=== PATIENT | female | born 1985 | race Caucasian/White ===

== ENCOUNTER 2016-11-12 13:27 | Emergency (ER) | payer OTHER ==
[2016-11-12] MEDS ORDERED: RABIES IMMUNE GLOB 150 UNIT/ML 10 ML VIAL IM ONE (13:53)
[2016-11-12] MEDS ORDERED: RABIES VACCINE (PCEC) 2.5 UNIT KIT IM ONE (13:58)
--- NOTE | 2016-11-12 14:07 | XR ---
EXAMINATION TYPE: XR wrist complete RT DATE OF EXAM: 11/12/2016 COMPARISON: NONE HISTORY: Pain and swelling TECHNIQUE: Four views submitted. FINDINGS: The osseous structures are intact. The joint spaces are preserved and there is no acute fracture or dislocation. Soft tissue emphysema and edema of adjacent to the wrist IMPRESSION: 1. No definite acute fracture or dislocation if symptoms persist, follow-up study in 7 to 10 days wo uld be suggested. 2. Soft tissue injury may be related to reported history of dog bites with edema and soft tissue emph ysema. Correlate clinically.
--- NOTE | 2016-11-12 14:13 | ED ---
Animal Bite HPI - General Chief Complaint: Animal Bite Stated Complaint: Dog Bite Time Seen by Provider: 11/12/16 13:49 Source: patient, RN notes reviewed Mode of arrival: ambulatory Limitations: no limitations - History of Present Illness Initial Comments: 31-year-old female presents to the emergency department with a chief complaint of left hand and right wrist dog bite that happened at 7 AM this morning. Patient states she is obtaining her tetanus. Patient states straight rashes are noted at his underwent the dog came from and she has no accident. Patient states other injury from the incident. Patient concerns that she went to [facility] and she was referred here for rabies. Patient denies any other symptoms at this time. Patient denies any recent fever, chills, shortness of breath, chest pain, back pain, abdominal pain, nausea vomiting, numbness or tingling, dysuria or hematuria, constipation or diarrhea, headaches or visual changes, or any other current symptoms. - Related Data Home Medications Medication Instructions Recorded Confirmed Albuterol Inhaler [Ventolin Hfa 2 puff INHALATION RT-Q6H PRN 08/13/15 11/12/16 Inhaler] Fluticasone Nasal [place] [Flonase 2 spr EA NOSTRIL DAILY PRN 08/13/15 11/12/16 Nasal [place]] metFORMIN HCL [Glucophage] 500 mg PO BID 08/13/15 11/12/16 Omeprazole [PriLOSEC] 40 mg PO QAM 10/07/15 11/12/16 Ranitidine HCl [Zantac] 150 mg PO HS 10/07/15 11/12/16 Previous Rx's Medication Instructions Recorded Clindamycin [Cleocin] 450 mg PO Q8HR #90 capsule 11/12/16 Allergies Allergy/AdvReac Type Severity Reaction Status Date / Time Penicillins Allergy Severe Anaphylaxis Verified 11/12/16 13:49 adhesive tape Allergy Rash/Hives Verified 11/12/16 13:49 hydromorphone HCl AdvReac Intermediate Decreased Verified 11/12/16 13:49 [From Dilaudid] Blood Pressure Review of Systems ROS Statement: Those systems with pertinent positive or pertinent negative responses have been documented in the HPI. ROS Other: All systems not noted in ROS Statement are negative. Past Medical History Past Medical History: Asthma, Osteoarthritis (OA) Additional Past Medical History / Comment(s): Obesity. PCOS, IBS. Obstetric history is significant for 9 week spontaneous miscarriage. History of Any Multi-Drug Resistant Organisms: None Reported, MRSA Date of last positivie culture/infection: 2007 MDRO Source:: right breast Additional Past Surgical History / Comment(s): Laminectomy Past Psychological History: No Psychological Hx Reported Smoking Status: Current every day smoker Past Alcohol Use History: None Reported Past Drug Use History: Marijuana - Past Family History Mother Family Medical History: Cancer General Exam - General Exam Comments Initial Comments: General: The patient is awake and alert, in no distress, and does not appear acutely ill. Neck: The neck is supple, there is no tenderness. Cardiovascular: There is a regular rate and rhythm. No murmur, rub or gallop is appreciated. Respiratory: Lungs are clear to auscultation, respirations are non-labored, breath sounds are equal. No wheezes, stridor, rales, or rhonchi. Musculoskeletal: Sensation intact with 2+ pulses throughout bilateral upper extremities. Patient does appear to have 2 bite olson to the right wrist that are about 1 cm in length. Patient appears to have multiple superficial bite olson diffusely to all fingers of the left hand Neurological: CN II-XII intact, There are no obvious motor or sensory deficits. Coordination appears grossly intact. Speech is normal. Skin: Skin is warm and dry and no rashes or lesions are noted. Psychiatric: Normal mood and affect. Limitations: no limitations Course Vital Signs 11/12/16 13:47 Temperature 98 F Pulse Rate 107 H Respiratory 20 Rate Blood Pressure 121/72 O2 Sat by Pulse 97 Oximetry Medical Decision Making - Medical Decision Making 31-year-old female presents for dog bite. This time we did do the rabies Onions and said the rabies vaccination series. The wound was thoroughly cleaned and prepped. We did start patient antibiotics. We discussed return parameters and follow-up and all patient's questions. She stated she understood and she is given plan. She'll be discharged home. - Radiology Data Radiology results: report reviewed, image reviewed Disposition Clinical Impression: Dog bite of right wrist, Dog bite of left hand Disposition: HOME SELF-CARE Condition: Stable Instructions: Animal Bite (ED) Additional Instructions: Please use medication as discussed. Please follow up with family doctor if symptoms have not improved over the next two days. Please return to the emergency room if your symptoms increase or worsen or for any other concerns. Please follow up on the outpatient rabies vaccination series. Prescriptions: Clindamycin [Cleocin] 450 mg PO Q8HR #90 capsule Referrals: Alda Mendez MD [Primary Care Provider] - 1-2 days Time of Disposition: 14:39
--- NOTE | 2016-11-12 14:35 | XR ---
EXAMINATION TYPE: XR hand complete LT DATE OF EXAM: 11/12/2016 COMPARISON: NONE HISTORY: Pain post dog bite TECHNIQUE: Three views are submitted. FINDINGS: The osseous structures are intact. The joint spaces are preserved and there is no acute fracture or dislocation. IMPRESSION: 1. No definite acute fracture or dislocation if symptoms persist, follow-up study in 7 to 10 days wo uld be suggested
--- NOTE | 2016-11-12 14:36 | XR ---
EXAMINATION TYPE: XR hand complete RT DATE OF EXAM: 11/12/2016 COMPARISON: NONE HISTORY: Pain post dog bite TECHNIQUE: Three views are submitted. FINDINGS: The osseous structures are intact. The joint spaces are preserved and there is no acute fracture or dislocation. Soft tissue injury and emphysema with edema overlying the distal radius. IMPRESSION: 1. No definite acute fracture or dislocation if symptoms persist, follow-up study in 7 to 10 days wo uld be suggested. 2. Soft tissue edema and emphysema adjacent to the radius.
[2016-11-12 15:07] VITALS: BP 122/82; PULSE 92; RESP 18; TEMP 98.1
== END 2016-11-12 15:06 | disposition home or self-care (01) ==
LOC: EC 13:27
DX: S61.551A Open bite of right wrist, initial encounter (principal); S60.372A Other superficial bite of left thumb, initial encounter; S60.471A Other superficial bite of left index finger, initial encounter; S60.473A Other superficial bite of left middle finger, initial encounter; S60.475A Other superficial bite of left ring finger, initial encounter; S60.477A Other superficial bite of left little finger, initial encounter; F17.200 Nicotine dependence, unspecified, uncomplicated; Z23 Encounter for immunization; Z88.0 Allergy status to penicillin; Z88.5 Allergy status to narcotic agent; Z91.048 Other nonmedicinal substance allergy status; Z79.84 Long term (current) use of oral hypoglycemic drugs; Z79.899 Other long term (current) drug therapy; W54.0XXA Bitten by dog, initial encounter
CPT/HCPCS: 90375; 90471; 90675; 96372; 99283

== ENCOUNTER 2017-03-16 10:00 | Emergency (ER) | payer OTHER ==
[2017-03-16] MEDS ORDERED: SODIUM CHLORIDE 0.9% 1,000 ML IV STA (10:51)
[2017-03-16] MEDS ORDERED: RX INFO: IV CONTRAST WAS GIVEN 1 EACH MISC MISCELLANE PRN (10:51)
[2017-03-16] MEDS ORDERED: ONDANSETRON 4 MG/2 ML VIAL IVP STA (10:51)
[2017-03-16] MEDS ORDERED: MORPHINE SULFATE 5 MG/ML SYRINGE IV STA (10:53)
[2017-03-16 11:35] LABS: Basophils % (A) 1 %; Eosinophils # (A) 0.2 k/uL (0-0.7); Eosinophils % (A) 3 %; HGB 13.4 gm/dL (11.4-16.0); Lymphocytes # (A) 2.3 k/uL (1.0-4.8); Lymphocytes % (A) 32 %; MCH 30.2 pg (25.0-35.0); MCHC 33.5 g/dL (31.0-37.0); MCV 90.2 fL (80.0-100.0); Mean Platelet Volume 7.9; Monocytes # (A) 0.2 k/uL (0-1.0); Monocytes % (A) 3 %; Neutrophils # (A) 4.3 k/uL (1.3-7.7); Neutrophils % (A) 60 %; Platelet Count 203 k/uL (150-450); RBC 4.43 m/uL (3.80-5.40); RDW 15.1 % (11.5-15.5); WBC 7.1 k/uL (3.8-10.6)
[2017-03-16 11:44] LABS: ALT 94 U/L (9-52); AST 73 U/L (14-36); Albumin 4.1 g/dL (3.5-5.0); Alkaline Phosphatase 58 U/L (38-126); Amylase 37 U/L (30-110); Anion Gap 13 mmol/L; Blood Urea Nitrogen 13 mg/dL (7-17); Calcium 9.6 mg/dL (8.4-10.2); Carbon Dioxide 26 mmol/L (22-30); Chloride 106 mmol/L (98-107); Glucose 96 mg/dL (74-99); Lipase 86 U/L (23-300); Potassium 3.9 mmol/L (3.5-5.1); Sodium 145 mmol/L (137-145); Total Bilirubin 0.5 mg/dL (0.2-1.3); Total Protein 6.9 g/dL (6.3-8.2)
[2017-03-16 11:54] LABS: Creatine Kinase 92 U/L (30-135)
[2017-03-16 12:01] LABS: Appearance,Urine Cloudy (Clear); Bacteria,Urine Occasional /hpf; Bilirubin,Urine Negative (Negative); Blood,Urine Trace (Negative); Color,Urine Yellow; Glucose,Urine (UA) Negative (Negative); Ketones,Urine Negative (Negative); Leukocyte Esterase,Urine Small (Negative); Mucus,Urine Rare /hpf; Nitrite,Urine Negative (Negative); Protein,Urine Trace (Negative); RBC,Urine 4 /hpf (0-5); Specific Gravity,Urine 1.023 (1.001-1.035); Squamous Epithelial Cell,Urine 16 /hpf (0-4); Urobilinogen,Urine <2.0 mg/dL (<2.0); WBC,Urine 7 /hpf (0-5)
[2017-03-16 12:04] LABS: Creatine Kinase MB <0.2 ng/mL (0.0-2.4)
--- NOTE | 2017-03-16 12:37 | ED ---
General Adult HPI - General Chief complaint: Abdominal Pain Stated complaint: BRUISE ON ABDOMEN FROM FALL, VOMITING, SHAKING Time Seen by Provider: 03/16/17 10:23 Source: patient, RN notes reviewed, old records reviewed Mode of arrival: wheelchair Limitations: no limitations - History of Present Illness Initial comments: This is a 31-year-old female to the ER for evaluation today. This patient's presenting for evaluation regards to abdominal pain. Patient has no prior significant medical history takes no medications. Patient states she had a recent fall causing injury to the left side of her body. She has severe bruising in severe pain. Diffuse abdominal pain with nausea sometimes shortness of breath with a deep breath and pain in her left side of her rib cage. Patient denies bleeding denies nausea or vomiting. Denies blood in her stool or urine no modifying factors for pain - Related Data Home Medications Medication Instructions Recorded Confirmed Fluticasone Nasal [place] [Flonase 2 spr EA NOSTRIL DAILY PRN 08/13/15 03/16/17 Nasal [place]] metFORMIN HCL [Glucophage] 850 mg PO BID 08/13/15 03/16/17 Omeprazole [PriLOSEC] 40 mg PO BID 10/07/15 03/16/17 Ranitidine HCl [Zantac] 150 mg PO BID 10/07/15 03/16/17 Allergies Allergy/AdvReac Type Severity Reaction Status Date / Time Penicillins Allergy Severe Anaphylaxis Verified 03/16/17 10:18 adhesive tape Allergy Rash/Hives Verified 03/16/17 10:18 clindamycin Allergy Nausea Verified 03/16/17 10:18 hydromorphone HCl AdvReac Intermediate Decreased Verified 03/16/17 10:18 [From Dilaudid] Blood Pressure Review of Systems ROS Statement: Those systems with pertinent positive or pertinent negative responses have been documented in the HPI. ROS Other: All systems not noted in ROS Statement are negative. Past Medical History Past Medical History: Asthma, Osteoarthritis (OA) Additional Past Medical History / Comment(s): Obesity. PCOS, IBS, chronic back pain. Obstetric history is significant for 9 week spontaneous miscarriage. History of Any Multi-Drug Resistant Organisms: None Reported, MRSA Date of last positivie culture/infection: 2007 MDRO Source:: right breast Additional Past Surgical History / Comment(s): Laminectomy Past Psychological History: No Psychological Hx Reported Smoking Status: Current every day smoker Past Alcohol Use History: None Reported Past Drug Use History: Marijuana - Past Family History Mother Family Medical History: Cancer General Exam Limitations: no limitations General appearance: alert, in no apparent distress Head exam: Present: atraumatic, normocephalic, normal inspection Eye exam: Present: normal appearance, PERRL, EOMI. Absent: scleral icterus, conjunctival injection, periorbital swelling ENT exam: Present: normal exam, mucous membranes moist Neck exam: Present: normal inspection. Absent: tenderness, meningismus, lymphadenopathy Respiratory exam: Present: normal lung sounds bilaterally. Absent: respiratory distress, wheezes, rales, rhonchi, stridor Cardiovascular Exam: Present: regular rate, normal rhythm, normal heart sounds. Absent: systolic murmur, diastolic murmur, rubs, gallop, clicks GI/Abdominal exam: Present: soft, tenderness (Patient does have bruising anterior left flank which is tender to touch), normal bowel sounds. Absent: distended, guarding, rebound, rigid Extremities exam: Present: normal inspection, full ROM, normal capillary refill. Absent: tenderness, pedal edema, joint swelling, calf tenderness Back exam: Present: normal inspection Neurological exam: Present: alert, oriented X3, CN II-XII intact Psychiatric exam: Present: normal affect, normal mood Skin exam: Present: warm, dry, intact, normal color. Absent: rash Course Vital Signs 03/16/17 10:07 Temperature 97.8 F Pulse Rate 90 Respiratory 20 Rate Blood Pressure 141/80 O2 Sat by Pulse 99 Oximetry - Reevaluation(s) Reevaluation #1: 03/16/17 13:38 Patient has adequate pain control at this time Medical Decision Making - Medical Decision Making 31 female the ER for evaluation of bowel pain severe with her bowel pain secondary to trauma with bruising. Patient does have abdominal wall contusion, CT is negative for chest pain or abdominal or organomegaly injury. Patient can be discharged home - Lab Data Result diagrams: 03/16/17 11:10 03/16/17 11:10 Lab Results 03/16/17 03/16/17 03/16/17 Range/Units 11:10 11:10 11:10 WBC 7.1 (3.8-10.6) k/uL RBC 4.43 (3.80-5.40) m/uL Hgb 13.4 (11.4-16.0) gm/dL Hct 40.0 (34.0-46.0) % MCV 90.2 (80.0-100.0) fL MCH 30.2 (25.0-35.0) pg MCHC 33.5 (31.0-37.0) g/dL RDW 15.1 (11.5-15.5) % Plt Count 203 (150-450) k/uL Neutrophils % 60 % Lymphocytes % 32 % Monocytes % 3 % Eosinophils % 3 % Basophils % 1 % Neutrophils # 4.3 (1.3-7.7) k/uL Lymphocytes # 2.3 (1.0-4.8) k/uL Monocytes # 0.2 (0-1.0) k/uL Eosinophils # 0.2 (0-0.7) k/uL Basophils # 0.0 (0-0.2) k/uL Sodium 145 (137-145) mmol/L Potassium 3.9 (3.5-5.1) mmol/L Chloride 106 (98-107) mmol/L Carbon Dioxide 26 (22-30) mmol/L Anion Gap 13 mmol/L BUN 13 (7-17) mg/dL Creatinine 0.74 (0.52-1.04) mg/dL Est GFR (MDRD) Af Amer >60 (>60 ml/min/1.73 sqM) Est GFR (MDRD) Non-Af >60 (>60 ml/min/1.73 sqM) Glucose 96 (74-99) mg/dL Calcium 9.6 (8.4-10.2) mg/dL Total Bilirubin 0.5 (0.2-1.3) mg/dL AST 73 H (14-36) U/L ALT 94 H (9-52) U/L Alkaline Phosphatase 58 (38-126) U/L Total Creatine Kinase 92 (30-135) U/L CK-MB (CK-2) <0.2 (0.0-2.4) ng/mL CK-MB (CK-2) Rel Index Total Protein 6.9 (6.3-8.2) g/dL Albumin 4.1 (3.5-5.0) g/dL Amylase 37 (30-110) U/L Lipase 86 (23-300) U/L Urine Color Urine Appearance (Clear) Urine pH (5.0-8.0) Ur Specific [place] (1.001-1.035) Urine Protein (Negative) Urine Glucose (UA) (Negative) Urine Ketones (Negative) Urine Blood (Negative) Urine Nitrite (Negative) Urine Bilirubin (Negative) Urine Urobilinogen (<2.0) mg/dL Ur Leukocyte Esterase (Negative) Urine RBC (0-5) /hpf Urine WBC (0-5) /hpf Ur Squamous Epith Cells (0-4) /hpf Urine Bacteria (None) /hpf Urine Mucus (None) /hpf Urine HCG, Qual (Not Detectd) 03/16/17 03/16/17 Range/Units 11:10 11:10 WBC (3.8-10.6) k/uL RBC (3.80-5.40) m/uL Hgb (11.4-16.0) gm/dL Hct (34.0-46.0) % MCV (80.0-100.0) fL MCH (25.0-35.0) pg MCHC (31.0-37.0) g/dL RDW (11.5-15.5) % Plt Count (150-450) k/uL Neutrophils % % Lymphocytes % % Monocytes % % Eosinophils % % Basophils % % Neutrophils # (1.3-7.7) k/uL Lymphocytes # (1.0-4.8) k/uL Monocytes # (0-1.0) k/uL Eosinophils # (0-0.7) k/uL Basophils # (0-0.2) k/uL Sodium (137-145) mmol/L Potassium (3.5-5.1) mmol/L Chloride (98-107) mmol/L Carbon Dioxide (22-30) mmol/L Anion Gap mmol/L BUN (7-17) mg/dL Creatinine (0.52-1.04) mg/dL Est GFR (MDRD) Af Amer (>60 ml/min/1.73 sqM) Est GFR (MDRD) Non-Af (>60 ml/min/1.73 sqM) Glucose (74-99) mg/dL Calcium (8.4-10.2) mg/dL Total Bilirubin (0.2-1.3) mg/dL AST (14-36) U/L ALT (9-52) U/L Alkaline Phosphatase (38-126) U/L Total Creatine Kinase (30-135) U/L CK-MB (CK-2) (0.0-2.4) ng/mL CK-MB (CK-2) Rel Index Total Protein (6.3-8.2) g/dL Albumin (3.5-5.0) g/dL Amylase (30-110) U/L Lipase (23-300) U/L Urine Color Yellow Urine Appearance Cloudy H (Clear) Urine pH 6.0 (5.0-8.0) Ur Specific [place] 1.023 (1.001-1.035) Urine Protein Trace H (Negative) Urine Glucose (UA) Negative (Negative) Urine Ketones Negative (Negative) Urine Blood Trace H (Negative) Urine Nitrite Negative (Negative) Urine Bilirubin Negative (Negative) Urine Urobilinogen <2.0 (<2.0) mg/dL Ur Leukocyte Esterase Small H (Negative) Urine RBC 4 (0-5) /hpf Urine WBC 7 H (0-5) /hpf Ur Squamous Epith Cells 16 H (0-4) /hpf Urine Bacteria Occasional H (None) /hpf Urine Mucus Rare H (None) /hpf Urine HCG, Qual Not Detected (Not Detectd) - Radiology Data Radiology results: report reviewed (CT chest and pelvis negative for acute disease), image reviewed Disposition Clinical Impression: Abdominal pain, Abdominal contusion Disposition: HOME SELF-CARE Condition: Good Instructions: Abdominal Pain (ED) Referrals: Alda Mendez MD [Primary Care Provider] - 1-2 days
--- NOTE | 2017-03-16 13:31 | CT ---
EXAMINATION TYPE: CT ChestAbdPelvis w con DATE OF EXAM: 03/16/2017 COMPARISON: CT abdomen pelvis 08/16/2015 HISTORY: Fall a couple days ago, Lt sided bruising CT DLP: 2726 mGycm Automated exposure control for dose reduction was used. CONTRAST: CT scan of the chest, abdomen and pelvis is performed without Oral Contrast and with IV Contrast, pat ient injected with 100 mL of Omnipaque 300. FINDINGS: LUNGS: The lungs are grossly clear, there is no concerning parenchymal mass or nodule identified. T here is no pleural effusion or pneumothorax seen. The tracheobronchial tree is patent. MEDIASTINUM: There are no greater than 1 cm hilar or mediastinal lymph nodes. No pericardial effusi on is seen. AORTA: No significant abnormality is seen. OTHER: No additional significant abnormality is seen. LIVER/GB: Liver shows low attenuation likely due to hepatic steatosis, gallbladder is normal. PANCREAS: No significant abnormality is seen. SPLEEN: Spleen is enlarged.. ADRENALS: No significant abnormality is seen. KIDNEYS: No significant abnormality is seen. REPRODUCTIVE ORGANS: No gross abnormality seen. BOWEL: There are some small bowel loops with wall thickening. FREE AIR: No Free Air visible. ASCITES: None seen. RETROPERITONEAL ADENOPATHY: No retroperitoneal adenopathy is seen. LYMPH NODES: No greater than 1 cm abdominal or pelvic lymph nodes are appreciated. URINARY BLADDER: No significant abnormality is seen. PELVIC ADENOPATHY: None visualized. OSSEOUS STRUCTURES: No significant abnormality is seen. IMPRESSION: No acute osseous fracture, abnormal fluid collection, or evidence of solid organ injury i n the thorax, abdomen, or pelvis. Splenomegaly. Difficult to exclude enteritis. Additional findings a binu.
[2017-03-16 14:09] VITALS: BP 111/72; PULSE 71; RESP 18; TEMP 97.9
== END 2017-03-16 14:06 | disposition home or self-care (01) ==
LOC: EC 10:00
DX: S30.1XXA Contusion of abdominal wall, initial encounter (principal); R06.02 Shortness of breath; R07.81 Pleurodynia; E66.9 Obesity, unspecified; F17.200 Nicotine dependence, unspecified, uncomplicated; Z79.84 Long term (current) use of oral hypoglycemic drugs; Z79.899 Other long term (current) drug therapy; Z88.0 Allergy status to penicillin; Z88.1 Allergy status to other antibiotic agents; Z88.5 Allergy status to narcotic agent; Z91.09 Other allergy status, other than to drugs and biological substances; Z86.14 Personal history of Methicillin resistant Staphylococcus aureus infection; Z68.41 Body mass index [BMI] 40.0-44.9, adult; W19.XXXA Unspecified fall, initial encounter; Y92.009 Unspecified place in unspecified non-institutional (private) residence as the place of occurrence of the external cause
CPT/HCPCS: 36415; 80053; 82150; 82550; 82553; 83690; 85025; 81001; 81025; 87086; 71260; 74177; 99285; 96374; 96375; 96361; J2405; Q9967; J2274

== ENCOUNTER 2017-05-29 16:41 | Emergency (ER) | payer OTHER ==
[2017-05-29 16:45] VITALS: TEMP 98.7
[2017-05-29] MEDS ORDERED: KETOROLAC 60 MG/2 ML VIAL IM STA (17:09)
--- NOTE | 2017-05-29 17:13 | ED ---
URI HPI - General Chief Complaint: Upper Respiratory Infection Stated Complaint: abd pain Time Seen by Provider: 05/29/17 17:00 Source: patient, RN notes reviewed Mode of arrival: ambulatory Limitations: no limitations - History of Present Illness Initial Comments: 31-year-old female presents emergency Department chief complaint of cough congestion for last 10 days. Patient states she seen at [facility] told that she had acute bronchitis was given an inhaler, low-dose steroids, Flonase. Patient states that she still been coughing and states that she's coughing so hard that her ribs hurt. She denies any abdominal pain denies any nausea vomiting diarrhea constipation. No fevers or chills. Patient is a daily smoker. Patient denies any sick contacts. She has not tried any over-the- counter cough and cold medications. - Related Data Home Medications Medication Instructions Recorded Confirmed Fluticasone Nasal [place] [Flonase 2 spr EA NOSTRIL DAILY PRN 08/13/15 03/16/17 Nasal [place]] metFORMIN HCL [Glucophage] 850 mg PO BID 08/13/15 03/16/17 Omeprazole [PriLOSEC] 40 mg PO BID 10/07/15 03/16/17 Ranitidine HCl [Zantac] 150 mg PO BID 10/07/15 03/16/17 Previous Rx's Medication Instructions Recorded Azithromycin [Zithromax Z-pack] 0 mg PO DIRECTED #1 pack 05/29/17 Promethaz-Cod 6.25-10 mg/5 ml 5 ml PO Q6HR PRN #120 ml 05/29/17 [Phenergan with Codeine] predniSONE 50 mg PO DAILY #5 tab 05/29/17 Allergies Allergy/AdvReac Type Severity Reaction Status Date / Time Penicillins Allergy Severe Anaphylaxis Verified 05/29/17 16:45 adhesive tape Allergy Rash/Hives Verified 05/29/17 16:45 clindamycin Allergy Nausea Verified 05/29/17 16:45 hydromorphone HCl AdvReac Intermediate Decreased Verified 05/29/17 16:45 [From Dilaudid] Blood Pressure Review of Systems ROS Statement: Those systems with pertinent positive or pertinent negative responses have been documented in the HPI. ROS Other: All systems not noted in ROS Statement are negative. Past Medical History Past Medical History: Asthma, Osteoarthritis (OA) Additional Past Medical History / Comment(s): Obesity. PCOS, IBS, chronic back pain. Obstetric history is significant for 9 week spontaneous miscarriage. History of Any Multi-Drug Resistant Organisms: None Reported, MRSA Date of last positivie culture/infection: 2007 MDRO Source:: right breast Additional Past Surgical History / Comment(s): Laminectomy Past Psychological History: No Psychological Hx Reported Smoking Status: Current every day smoker Past Alcohol Use History: None Reported Past Drug Use History: Marijuana - Past Family History Mother Family Medical History: Cancer General Exam Limitations: no limitations General appearance: alert, in no apparent distress Head exam: Present: atraumatic, normocephalic, normal inspection Eye exam: Present: normal appearance, PERRL, EOMI. Absent: scleral icterus, conjunctival injection, periorbital swelling ENT exam: Present: normal exam, normal oropharynx, mucous membranes moist, TM's normal bilaterally Neck exam: Present: normal inspection, full ROM. Absent: tenderness, meningismus, lymphadenopathy Respiratory exam: Present: normal lung sounds bilaterally, chest wall tenderness (Anterior lateral left side). Absent: respiratory distress, wheezes , rales, rhonchi, stridor Cardiovascular Exam: Present: regular rate, normal rhythm, normal heart sounds. Absent: systolic murmur, diastolic murmur, rubs, gallop, clicks GI/Abdominal exam: Present: soft, normal bowel sounds. Absent: distended, tenderness, guarding, rebound, rigid Back exam: Absent: CVA tenderness (R), CVA tenderness (L) Psychiatric exam: Present: normal affect, normal mood Skin exam: Present: warm, dry, intact, normal color. Absent: rash Course Vital Signs 05/29/17 16:41 Temperature 98.7 F Pulse Rate 97 Respiratory 22 Rate Blood Pressure 108/58 O2 Sat by Pulse 100 Oximetry Medical Decision Making - Medical Decision Making 31-year-old female presents from for left-sided rib pain. Patient pain is over the anterolateral portion reproducible she has no current shortness of breath. She has no abdominal tenderness. Patient x-ray reviewed there is no evidence of infiltrate or pneumothorax. Patient's symptoms are only present when she coughs or costovertebral ribs. Patient was started on Zithromax she's been sick for 10 days and cough syrup. She is advised that she needs a follow-up tomorrow morning for recheck and return for any worsening symptoms. Disposition Clinical Impression: Rib pain on left side, Acute bronchitis Disposition: HOME SELF-CARE Condition: Stable Instructions: Costochondritis (ED) Additional Instructions: Please return to the Emergency Department if symptoms worsen or any other concerns. Prescriptions: Azithromycin [Zithromax Z-pack] 0 mg PO DIRECTED #1 pack predniSONE 50 mg PO DAILY #5 tab Promethaz-Cod 6.25-10 mg/5 ml [Phenergan with Codeine] 5 ml PO Q6HR PRN #120 ml PRN Reason: Cough Referrals: Alda Mendez MD [Primary Care Provider] - 1-2 days Time of Disposition: 17:58
--- NOTE | 2017-05-29 17:52 | XR ---
EXAMINATION TYPE: XR chest 2V DATE OF EXAM: 05/29/2017 COMPARISON: 08/27/2014 INDICATION: Cough, pain TECHNIQUE: Frontal and lateral views of the chest are obtained. FINDINGS: The heart size is normal. The pulmonary vasculature is normal. The lungs are clear. IMPRESSION: 1. No acute pulmonary process.
[2017-05-29 18:08] VITALS: BP 143/58; PULSE 82; RESP 20
== END 2017-05-29 18:08 | disposition home or self-care (01) ==
LOC: EC 16:41
DX: J20.9 Acute bronchitis, unspecified (principal); R07.81 Pleurodynia; F17.200 Nicotine dependence, unspecified, uncomplicated; E66.9 Obesity, unspecified; Z86.14 Personal history of Methicillin resistant Staphylococcus aureus infection; Z68.41 Body mass index [BMI] 40.0-44.9, adult; Z88.0 Allergy status to penicillin; Z88.1 Allergy status to other antibiotic agents; Z88.5 Allergy status to narcotic agent; Z91.048 Other nonmedicinal substance allergy status; Z79.84 Long term (current) use of oral hypoglycemic drugs; Z79.899 Other long term (current) drug therapy
CPT/HCPCS: 99283; 96372; 71046; J1885

== ENCOUNTER 2017-12-02 11:52 | Observation (INO) | payer OTHER ==
--- NOTE | 2017-12-02 12:10 | ED ---
General Adult HPI - General Stated complaint: Left side numbness Time Seen by Provider: 12/02/17 11:55 Source: RN notes reviewed - History of Present Illness Initial comments: This is a 32-year-old female presents emergency Department stating she had some tingling and numbness in her left arm couple hours prior to arrival and also had some right-sided facial droop. Patient states her friend noticed a facial droop and so did she while looking in the mirror. Patient denies any headache patient denies any actual weakness in her arms or legs. Patient denies any recent fever chills. Patient denies any chest pain difficulty breathing shortness of breath. Patient denies abdominal pain patient denies nausea vomiting diarrhea. Patient denies any recent injury or trauma. - Related Data Home Medications Medication Instructions Recorded Confirmed Fluticasone Nasal [place] [Flonase 2 spr EA NOSTRIL DAILY PRN 08/13/15 12/02/17 Nasal [place]] metFORMIN HCL [Glucophage] 850 mg PO BID 08/13/15 12/02/17 Omeprazole [PriLOSEC] 40 mg PO BID 10/07/15 12/02/17 Ranitidine HCl [Zantac] 150 mg PO BID 10/07/15 12/02/17 Albuterol Inhaler [Ventolin Hfa 2 puff INHALATION RT-Q6H PRN 12/02/17 12/02/17 Inhaler] Loratadine [Claritin] 10 mg PO DAILY 12/02/17 12/02/17 Allergies Allergy/AdvReac Type Severity Reaction Status Date / Time Penicillins Allergy Severe Anaphylaxis Verified 12/02/17 12:30 adhesive tape Allergy Rash/Hives Verified 12/02/17 12:30 clindamycin Allergy Nausea Verified 12/02/17 12:30 hydromorphone HCl AdvReac Intermediate Decreased Verified 12/02/17 12:30 [From Dilaudid] Blood Pressure Review of Systems ROS Statement: Those systems with pertinent positive or pertinent negative responses have been documented in the HPI. ROS Other: All systems not noted in ROS Statement are negative. Past Medical History Past Medical History: Asthma, Osteoarthritis (OA) Additional Past Medical History / Comment(s): Obesity. PCOS, IBS, chronic back pain. Obstetric history is significant for 9 week spontaneous miscarriage. History of Any Multi-Drug Resistant Organisms: None Reported, MRSA Date of last positivie culture/infection: 2007 MDRO Source:: right breast Additional Past Surgical History / Comment(s): Laminectomy Past Psychological History: No Psychological Hx Reported Smoking Status: Current every day smoker Past Alcohol Use History: None Reported Past Drug Use History: Marijuana - Past Family History Mother Family Medical History: Cancer General Exam - General Exam Comments Initial Comments: GENERAL: Patient is well-developed and well-nourished. Patient is nontoxic and well- hydrated and is in no acute distress. ENT: Neck is soft and supple. No significant lymphadenopathy is noted. Oropharynx is clear. Moist mucous membranes. Neck has full range of motion without eliciting any pain. EYES: The sclera were anicteric and conjunctiva were pink and moist. Extraocular movements were intact and pupils were equal round and reactive to light. Eyelids were unremarkable. PULMONARY: Unlabored respirations. Good breath sounds bilaterally. No audible rales rhonchi or wheezing was noted. CARDIOVASCULAR: There is a regular rate and rhythm without any murmurs gallops or rubs. ABDOMEN: Soft and nontender with normal bowel sounds. No palpable organomegaly was noted. There is no palpable pulsatile mass. SKIN: Skin is clear with no lesions or rashes and otherwise unremarkable. NEUROLOGIC: Patient is alert and oriented x3. Cranial nerves II through XII are grossly intact. Motor and sensory are also intact. Normal speech, volume and content. Symmetrical smile. Patient's smile and facial movements were all equal unless you asked her specifically to smile and then she would only raise the left side of her face however through all conversations and her laughing and talking there was no deficit noted. MUSCULOSKELETAL: Normal extremities with adequate strength and full range of motion. LYMPHATICS: No significant lymphadenopathy is noted PSYCHIATRIC: Normal psychiatric evaluation. Normal interpersonal interactions appears functionally intact in deals appropriately with others. No signs of depression. No signs of anxiety. Course Vital Signs 12/02/17 12/02/17 12:04 13:05 Temperature 98.9 F Pulse Rate 87 76 Respiratory 18 18 Rate Blood Pressure 119/65 101/55 O2 Sat by Pulse 99 96 Oximetry Medical Decision Making - Medical Decision Making EKG shows sinus rhythm at 62 bpm AL interval 158 QRSs 80 QT interval 434 QTC is 440. Patient's EKG shows no ST segment elevation or depression or T wave abnormalities are noted. CT of the brain shows no acute abnormality. I spoke with Dr. Dickerson he agreed to admit the patient admitted the patient I carotid Dopplers as well as a neuro consult. Patient has no symptoms at this time. - Lab Data Result diagrams: 12/02/17 12:12/02/17 12: Lab Results 12/02/17 12/02/17 12/02/17 Range/Units 12: 12: 12:01 WBC 8.1 (3.8-10.6) k/uL RBC 4.47 (3.80-5.40) m/uL Hgb 13.1 (11.4-16.0) gm/dL Hct 39.9 (34.0-46.0) % MCV 89.1 (80.0-100.0) fL MCH 29.2 (25.0-35.0) pg MCHC 32.8 (31.0-37.0) g/dL RDW 13.0 (11.5-15.5) % Plt Count 247 (150-450) k/uL Neutrophils % 63 % Lymphocytes % 30 % Monocytes % 2 % Eosinophils % 4 % Basophils % 0 % Neutrophils # 5.0 (1.3-7.7) k/uL Lymphocytes # 2.4 (1.0-4.8) k/uL Monocytes # 0.2 (0-1.0) k/uL Eosinophils # 0.3 (0-0.7) k/uL Basophils # 0.0 (0-0.2) k/uL PT (9.0-12.0) sec INR (<1.2) APTT (22.0-30.0) sec Sodium 142 (137-145) mmol/L Potassium 4.0 (3.5-5.1) mmol/L Chloride 110 H (98-107) mmol/L Carbon Dioxide 23 (22-30) mmol/L Anion Gap 9 mmol/L BUN 14 (7-17) mg/dL Creatinine 0.62 (0.52-1.04) mg/dL Est GFR (CKD-EPI)AfAm >90 (>60 ml/min/1.73 sqM) Est GFR (CKD-EPI)NonAf >90 (>60 ml/min/1.73 sqM) Glucose 92 (74-99) mg/dL Calcium 8.5 (8.4-10.2) mg/dL Total Bilirubin 0.5 (0.2-1.3) mg/dL AST 24 (14-36) U/L ALT 36 (9-52) U/L Alkaline Phosphatase 52 (38-126) U/L Total Creatine Kinase 78 (30-135) U/L CK-MB (CK-2) 0.3 (0.0-2.4) ng/mL CK-MB (CK-2) Rel Index 0.4 Troponin I <0.012 (0.000-0.034) ng/mL Total Protein 6.3 (6.3-8.2) g/dL Albumin 3.5 (3.5-5.0) g/dL 12/02/17 Range/Units 12:01 WBC (3.8-10.6) k/uL RBC (3.80-5.40) m/uL Hgb (11.4-16.0) gm/dL Hct (34.0-46.0) % MCV (80.0-100.0) fL MCH (25.0-35.0) pg MCHC (31.0-37.0) g/dL RDW (11.5-15.5) % Plt Count (150-450) k/uL Neutrophils % % Lymphocytes % % Monocytes % % Eosinophils % % Basophils % % Neutrophils # (1.3-7.7) k/uL Lymphocytes # (1.0-4.8) k/uL Monocytes # (0-1.0) k/uL Eosinophils # (0-0.7) k/uL Basophils # (0-0.2) k/uL PT 9.9 (9.0-12.0) sec INR 1.0 (<1.2) APTT 23.8 (22.0-30.0) sec Sodium (137-145) mmol/L Potassium (3.5-5.1) mmol/L Chloride (98-107) mmol/L Carbon Dioxide (22-30) mmol/L Anion Gap mmol/L BUN (7-17) mg/dL Creatinine (0.52-1.04) mg/dL Est GFR (CKD-EPI)AfAm (>60 ml/min/1.73 sqM) Est GFR (CKD-EPI)NonAf (>60 ml/min/1.73 sqM) Glucose (74-99) mg/dL Calcium (8.4-10.2) mg/dL Total Bilirubin (0.2-1.3) mg/dL AST (14-36) U/L ALT (9-52) U/L Alkaline Phosphatase (38-126) U/L Total Creatine Kinase (30-135) U/L CK-MB (CK-2) (0.0-2.4) ng/mL CK-MB (CK-2) Rel Index Troponin I (0.000-0.034) ng/mL Total Protein (6.3-8.2) g/dL Albumin (3.5-5.0) g/dL Disposition Clinical Impression: Transient cerebral ischemia Disposition: ADMITTED IP TO THIS HOSP Referrals: Alda Mendez MD [Primary Care Provider] - 1-2 days Time of Disposition: 13:42
[2017-12-02 12:22] LABS: Basophils % (A) 0 %; Eosinophils # (A) 0.3 k/uL (0-0.7); Eosinophils % (A) 4 %; HCT 39.9 % (34.0-46.0); HGB 13.1 gm/dL (11.4-16.0); Lymphocytes # (A) 2.4 k/uL (1.0-4.8); Lymphocytes % (A) 30 %; MCH 29.2 pg (25.0-35.0); MCHC 32.8 g/dL (31.0-37.0); MCV 89.1 fL (80.0-100.0); Mean Platelet Volume 7.2; Monocytes # (A) 0.2 k/uL (0-1.0); Monocytes % (A) 2 %; Neutrophils % (A) 63 %; Platelet Count 247 k/uL (150-450); RBC 4.47 m/uL (3.80-5.40); WBC 8.1 k/uL (3.8-10.6)
--- NOTE | 2017-12-02 12:28 | CT ---
EXAMINATION TYPE: CT brain wo con for TPA DATE OF EXAM: 12/02/2017 COMPARISON: MRI brain March 21, 2014. CT facial bones May 15, 2010 HISTORY: Right sided facial numbness and Pupil dilation CT DLP: 1162.8 mGycm Automated exposure control for dose reduction was used. FINDINGS: There is no acute intracranial hemorrhage, mass effect, or midline shift identified. The ventricles and sulci are within normal limits in size. [place]-white matter differentiation is preserved. There is new patchy fluid throughout the right maxillary sinus with less well-visualized inferior pos terior mucous retention cyst or polyp. Eccentric mucosal thickening or polyp posterior inferior left maxillary sinus is redemonstrated near axial image 1. There is new mild to moderate mucosal thickening and patchy opacification anterior ethmoid sinuses bi laterally and mild mucosal thickening in inferior aspect of bilateral frontal sinuses now identified. Globes are intact bilaterally. IMPRESSION: No acute intracranial hemorrhage or midline shift is seen. New acute on chronic paranasal sinus disea se as detailed above. If clinical concern for acute stroke persists further investigation with MRI study may be warranted.
--- NOTE | 2017-12-02 12:29 | XR ---
EXAMINATION TYPE: XR chest 2V DATE OF EXAM: 12/02/2017 COMPARISON: Chest x-ray May 29, 2017. HISTORY: Right-sided numbness and dizziness. Weakness. TECHNIQUE: Frontal and lateral views of the chest are obtained. FINDINGS: There is no focal air space opacity, pleural effusion, or pneumothorax seen. The cardiac silhouette size is within normal limits. The osseous structures are intact. IMPRESSION: No acute cardiopulmonary process. No significant change from prior.
[2017-12-02 12:32] LABS: ALT 36 U/L (9-52); AST 24 U/L (14-36); Albumin 3.5 g/dL (3.5-5.0); Alkaline Phosphatase 52 U/L (38-126); Anion Gap 9 mmol/L; Blood Urea Nitrogen 14 mg/dL (7-17); Calcium 8.5 mg/dL (8.4-10.2); Carbon Dioxide 23 mmol/L (22-30); Chloride 110 mmol/L (98-107); Glucose 92 mg/dL (74-99); Sodium 142 mmol/L (137-145); Total Bilirubin 0.5 mg/dL (0.2-1.3); Total Protein 6.3 g/dL (6.3-8.2)
[2017-12-02 12:43] LABS: Creatine Kinase 78 U/L (30-135)
[2017-12-02 12:50] LABS: Partial Thromboplastin Time 23.8 sec (22.0-30.0); Prothrombin Time 9.9 sec (9.0-12.0)
[2017-12-02 12:56] LABS: Creatine Kinase MB 0.3 ng/mL (0.0-2.4); Troponin I <0.012 ng/mL (0.000-0.034)
[2017-12-02] MEDS ORDERED: ASPIRIN 325 MG TAB PO STA (14:40)
[2017-12-02] MEDS ORDERED: FLUTICASONE 50MCG/SPRAY NASAL 16GM EA NOSTRIL PRN (16:20)
[2017-12-02] MEDS ORDERED: IPRATROPIUM-ALBUTEROL 3 ML NEB INHALATION PRN (16:21)
--- NOTE | 2017-12-02 17:51 | P.HPIM ---
History of Present Illness 32-year-old female presents emergency Department stating she had some tingling and numbness in her left arm couple hours prior to arrival and also had some right-sided facial droop. Patient states her friend noticed a facial droop and so did she while looking in the mirror. Patient denies any headache patient denies any actual weakness in her arms or legs. Patient denies any recent fever chills. Patient denies any chest pain difficulty breathing shortness of breath. Patient denies abdominal pain patient denies nausea vomiting diarrhea. Patient denies any recent injury or trauma. Patient does have a tingling numbness in the left arm as well as the right leg. When questioned patient to give me a questionable history of pain behind the eyes which happens often. Patient denied any family history of multiple sclerosis denied any premature coronary artery disease or cerebrovascular disease. Patient does smoke. Wheezing on exam coughing greenish phlegm. Review of Systems REVIEW OF SYSTEMS: CONSTITUTIONAL: No fever, no malaise, no fatigue. HEENT: No recent visual problems or hearing problems. Denied any sore throat. CARDIOVASCULAR: No chest pain, orthopnea, PND, no palpitations, no syncope. PULMONARY: No shortness of breath, no cough, no hemoptysis. GASTROINTESTINAL: No diarrhea, no nausea, no vomiting, no abdominal pain. Normoactive bowel sounds. NEUROLOGICAL: No headaches, HEMATOLOGICAL: Denies any bleeding or petechiae. GENITOURINARY: Denies any burning micturition, frequency, or urgency. MUSCULOSKELETAL/RHEUMATOLOGICAL: Denies any joint pain, swelling, or any muscle pain. ENDOCRINE: Denies any polyuria or polydipsia. The rest of the 14-point review of systems is negative. Past Medical History Past Medical History: Asthma, GERD/Reflux, Hyperlipidemia, Osteoarthritis (OA) Additional Past Medical History / Comment(s): Obesity. PCOS, IBS, chronic back pain"disc herniation", "cluster headaches",fatty liver, esophogitis. Obstetric history is significant for 9 week spontaneous miscarriage. History of Any Multi-Drug Resistant Organisms: MRSA Date of last positivie culture/infection: 2007 MDRO Source:: right breast Past Surgical History: Back Surgery Additional Past Surgical History / Comment(s): Laminectomy Past Anesthesia/Blood Transfusion Reactions: Previous Problems w/ Anesthesia Additional Past Anesthesia/Blood Transfusion Reaction / Comment(s): difficulty waking up , clausterphobia Past Psychological History: Anxiety, Depression Additional Psychological History / Comment(s): per pmh Smoking Status: Current every day smoker Past Alcohol Use History: None Reported Additional Past Alcohol Use History / Comment(s): started smoking at age 28 smoke 1/2 ppd Past Drug Use History: Marijuana Additional Drug Use History / Comment(s): daily use - Past Family History Mother Family Medical History: Cancer Father Family Medical History: Eye Disorder Additional Family Medical History / Comment(s): glaucoma, macular degeneration, low sodium Medications and Allergies Home Medications Medication Instructions Recorded Confirmed Type Fluticasone Nasal [place] [Flonase 2 spr EA NOSTRIL DAILY PRN 08/13/15 12/02/17 History Nasal [place]] metFORMIN HCL [Glucophage] 850 mg PO BID 08/13/15 12/02/17 History Omeprazole [PriLOSEC] 40 mg PO BID 10/07/15 12/02/17 History Ranitidine HCl [Zantac] 150 mg PO BID 10/07/15 12/02/17 History Albuterol Inhaler [Ventolin Hfa 2 puff INHALATION RT-Q6H PRN 12/02/17 12/02/17 History Inhaler] Loratadine [Claritin] 10 mg PO DAILY 12/02/17 12/02/17 History Allergies Allergy/AdvReac Type Severity Reaction Status Date / Time Penicillins Allergy Severe Anaphylaxis Verified 12/02/17 12:30 adhesive tape Allergy Rash/Hives Verified 12/02/17 12:30 clindamycin Allergy Nausea Verified 12/02/17 12:30 hydromorphone HCl AdvReac Intermediate Decreased Verified 12/02/17 12:30 [From Dilaudid] Blood Pressure Physical Exam Vitals: Vital Signs Temp Pulse Pulse Resp BP BP Pulse Ox 12/02/17 15:40 67 16 124/65 12/02/17 15:03 78 18 102/54 99 12/02/17 14:40 97.4 F L 72 18 114/65 94 L 12/02/17 13:05 76 18 101/55 96 12/02/17 12:04 98.9 F 87 18 119/65 99 Intake and Output 12/02/17 12/02/17 12/02/17 06:59 14:59 22:59 Intake Total 500 Balance 500 Intake: Oral 500 Other: # Voids 2 Weight 115.666 kg PHYSICAL EXAMINATION: GENERAL: The patient is alert and oriented x3, not in any acute distress. Well developed, well nourished. HEENT: Pupils are round and equally reacting to light. EOMI. No scleral icterus. No conjunctival pallor. Normocephalic, atraumatic. No pharyngeal erythema. No thyromegaly. CARDIOVASCULAR: S1 and S2 present. No murmurs, rubs, or gallops. PULMONARY: Expiratory wheezing on exam ABDOMEN: Soft, nontender, nondistended, normoactive bowel sounds. No palpable organomegaly. MUSCULOSKELETAL: No joint swelling or deformity. EXTREMITIES: No cyanosis, clubbing, or pedal edema. NEUROLOGICAL: Gross neurological examination did not reveal any focal deficits. SKIN: No rashes. Results CBC & Chem 7: 12/02/17 12:01 12/02/17 12:01 Labs: Abnormal Lab Results - Last 24 Hours (Table) 12/02/17 Range/Units 12:01 Chloride 110 H (98-107) mmol/L Assessment and Plan Plan: --Tingling numbness in multiple areas: Low suspicion for CVA neurology will evaluate the patient that there is no sensory deficits or weakness at this time. Patient will be evaluated for CVA. Patient may need to be evaluated for multiple sclerosis no family history of multiple sclerosis. Carotid Doppler echocardiogram and lipid panel is being obtained -Mild asthma on COPD exacerbation patient will be started on inhaled steroids inhalational treatments if needed patient will be started on systemic steroids -P COD: Hold off metformin temporarily -Hyperlipidemia -Gastric esophageal reflux disease next and-wasting: Counseling was provided
--- NOTE | 2017-12-02 18:20 | US ---
EXAMINATION TYPE: US carotid duplex BILAT DATE OF EXAM: 12/02/2017 COMPARISON: NONE CLINICAL HISTORY: cva. left arm numbness EXAM MEASUREMENTS: RIGHT: Peak Systolic Velocity (PSV) cm/sec ----- Right CCA: 119.5 ----- Right ICA: 115.7 ----- Right ECA: 118.2 ICA/CCA ratio: 1.0 RIGHT: End Diastole cm/sec ----- Right CCA: 43.7 ----- Right ICA: 46.2 ----- Right ECA: 17.2 LEFT: Peak Systolic Velocity (PSV) cm/sec ----- Left CCA: 125.5 ----- Left ICA: 130.3 ----- Left ECA: 82.2 ICA/CCA ratio: 1.0 LEFT: End Diastole cm/sec ----- Left CCA: 49.5 ----- Left ICA: 44.6 ----- Left ECA: 21.6 VERTEBRALS (direction of flow): Right Vertebral: Antegrade Left Vertebral: Antegrade Rhythm: Normal No significant stenosis seen. No plaque seen, mildly elevated velocities. IMPRESSION: There is antegrade flow in the vertebral arteries. The images and measurements suggest c lose to 0% stenosis in both internal carotid arteries. Criteria for Assigning % of Stenosis / Diameter reduction (Estimation based on the indirect measurements of the internal carotid artery velocities (ICA PSV). 1. Normal (no stenosis)=ICA PSV < 125 cm/s: ratio < 2.0: ICA EDV<40 cm/s. 2. Less than 50% stenosis=ICA PSV < 125 cm/s: ratio < 2.0: ICA EDV<40 cm/s. 3. 50 to 69% stenosis=ICA PSV of 125 to 230 cm/s: ration 2.0 ? 4.0: ICA EDV 40-100 cm/s. 4. Greater than 70% stenosis to near occlusion= ICA PSV > 230 cm/s: ratio > 4.0: ICA EDV > 100 cm/s. 5. Near occlusion= ICA PSV velocities may be low or undetectable: variable ratio and ICA EDV. 6. Total occlusion=unable to detect flow.
[2017-12-02] MEDS: PANTOPRAZOLE 40 MG TABLET PO SCH (19:21)
--- NOTE | 2017-12-02 19:52 | P.CNNES ---
History of Present Illness Consult date: 12/02/17 History of Present Illness: The patient is a 32-year-old right-handed white female who woke up from a nap at 10:15 this morning expends numbness weakness and tingling in the left arm as well as right face. She states that her family member said that her right face was droopy. The patient has a history of cluster headaches as well as migraine headaches. States she did have a headache when she woke up from her nap. He also experienced a burning sensation in the right eye. She states that EMS was called and she was brought to the hospital. She has history of high cholesterol and she does smoke half a pack of cigarettes a day. Uses medical marijuana for chronic back pain. The patient currently has no symptoms in the left arm or any weakness or numbness in the hands or legs. Denied any double vision. Review of Systems Constitutional: Denies chills, Denies fever Eyes: denies blurred vision, denies pain Ears, nose, mouth and throat: Denies headache, Denies sore throat Cardiovascular: Denies chest pain, Denies shortness of breath Respiratory: Denies cough Musculoskeletal: Denies myalgias Integumentary: Denies pruritus, Denies rash Neurological: Denies numbness, Denies weakness Psychiatric: Reports as per HPI Past Medical History Past Medical History: Asthma, GERD/Reflux, Hyperlipidemia, Osteoarthritis (OA) Additional Past Medical History / Comment(s): Obesity. PCOS, IBS, chronic back pain"disc herniation", "cluster headaches",fatty liver, esophogitis. Obstetric history is significant for 9 week spontaneous miscarriage. History of Any Multi-Drug Resistant Organisms: MRSA Date of last positivie culture/infection: 2007 MDRO Source:: right breast Past Surgical History: Back Surgery Additional Past Surgical History / Comment(s): Laminectomy Past Anesthesia/Blood Transfusion Reactions: Previous Problems w/ Anesthesia Additional Past Anesthesia/Blood Transfusion Reaction / Comment(s): difficulty waking up , clausterphobia Past Psychological History: Anxiety, Depression Additional Psychological History / Comment(s): per pmh Smoking Status: Current every day smoker Past Alcohol Use History: None Reported Additional Past Alcohol Use History / Comment(s): started smoking at age 28 smoke 1/2 ppd Past Drug Use History: Marijuana Additional Drug Use History / Comment(s): daily use - Past Family History Mother Family Medical History: Cancer Father Family Medical History: Eye Disorder Additional Family Medical History / Comment(s): glaucoma, macular degeneration, low sodium Medications and Allergies Home Medications Medication Instructions Recorded Confirmed Type Fluticasone Nasal [place] [Flonase 2 spr EA NOSTRIL DAILY PRN 08/13/15 12/02/17 History Nasal [place]] metFORMIN HCL [Glucophage] 850 mg PO BID 08/13/15 12/02/17 History Omeprazole [PriLOSEC] 40 mg PO BID 10/07/15 12/02/17 History Ranitidine HCl [Zantac] 150 mg PO BID 10/07/15 12/02/17 History Albuterol Inhaler [Ventolin Hfa 2 puff INHALATION RT-Q6H PRN 12/02/17 12/02/17 History Inhaler] Loratadine [Claritin] 10 mg PO DAILY 12/02/17 12/02/17 History Allergies Allergy/AdvReac Type Severity Reaction Status Date / Time Penicillins Allergy Severe Anaphylaxis Verified 12/02/17 12:30 adhesive tape Allergy Rash/Hives Verified 12/02/17 12:30 clindamycin Allergy Nausea Verified 12/02/17 12:30 hydromorphone HCl AdvReac Intermediate Decreased Verified 12/02/17 12:30 [From Dilaudid] Blood Pressure Physical Examination - Vital Signs Vital Signs: Vital Signs Temp Pulse Pulse Resp BP BP Pulse Ox 12/02/17 15:40 67 16 124/65 12/02/17 15:03 78 18 102/54 99 12/02/17 14:40 97.4 F L 72 18 114/65 94 L 12/02/17 13:05 76 18 101/55 96 12/02/17 12:04 98.9 F 87 18 119/65 99 Intake and Output 12/02/17 12/02/17 12/02/17 06:59 14:59 22:59 Intake Total 500 Balance 500 Intake: Oral 500 Other: # Voids 2 Weight 115.666 kg - Constitutional General appearance: average body habitus - EENT EENT: PERRL - Respiratory Respiratory: lungs clear - Cardiovascular Cardiovascular: regular rate, normal S1, normal S2 - Integumentary Integumentary: normal - Neurologic Neurologic examination: Next Mental status she was awake alert and oriented 3 her speech was fluent there is no a aphasia or dysarthria Cranial nerves II through XII are grossly intact next Motor examination she had a give way type weakness in the left arm which was inconsistent next Sensory examination showed decreased light touch in the right leg asymptomatic Gait was normal based Deep tendon reflexes were 1+ and symmetric. Results - Laboratory Findings CBC and BMP: 12/02/17 12:01 12/02/17 12:01 Abnormal Lab Findings: Abnormal Labs 12/02/17 12:01 Chloride 110 H Assessment and Plan (1) Transient cerebral ischemia Current Visit: Yes Status: Acute SNOMED Code(s): 690114879 (2) Migraine-cluster headache syndrome Current Visit: Yes Status: Acute SNOMED Code(s): 02738722 Plan: The patient is a 32-year-old woman who presented with transient episode of left arm weakness and right facial weakness. Patient may have had a TIA. Recommend further evaluation with MRI scan of the brain. Also we'll do coagulopathy screen. He had a CAT scan of the brain which showed no acute abnormality. There was acute on chronic paranasal paranasal sinus disease she had a carotid ultrasound which did not show any significant stenosis. She was advised to stop smoking area the patient was advised to stay on aspirin daily
[2017-12-02] MEDS: DOXYCYCLINE 100 MG CAP PO SCH (20:30)
[2017-12-02] MEDS: SYMBICORT 160-4.5 MCG INHALER INHALATION SCH (20:37)
[2017-12-03 02:14] VITALS: RESP 18
[2017-12-03 02:45] LABS: Cardiolipin Ab IgG Interp NEGATIVE (NEGATIVE); Cardiolipin Ab IgM Interp NEGATIVE (NEGATIVE); Cardiolipin IgA Antibody <0.5 U/mL; Cardiolipin IgM Antibody 0.5 U/mL
[2017-12-03] MEDS: PANTOPRAZOLE 40 MG TABLET PO SCH (06:10)
[2017-12-03 06:45] LABS: Cholesterol 142 mg/dL (<200); HDL Cholesterol 26 mg/dL (40-60); LDL Cholesterol,Calculated 88 mg/dL (0-99); Triglycerides 139 mg/dL (<150)
[2017-12-03] MEDS ORDERED: BUTALB/APAP/CAFF 50-325-40MG TAB PO PRN (06:49)
[2017-12-03] MEDS: SYMBICORT 160-4.5 MCG INHALER INHALATION SCH (08:01)
[2017-12-03] MEDS ORDERED: ASPIRIN 325 MG TAB PO SCH (09:00)
[2017-12-03] MEDS ORDERED: LORATADINE 10 MG TAB PO SCH (09:00)
[2017-12-03] MEDS: DOXYCYCLINE 100 MG CAP PO SCH (09:30)
--- NOTE | 2017-12-03 10:11 | ECHOF ---
Referral Reason:possible TIA MEASUREMENTS -------- HEIGHT: 167.6 cm WEIGHT: 115.7 kg BP: RVIDd: 3.0 cm (< 3.3) IVSd: 0.9 cm (0.6 - 1.1) LVIDd: 5.1 cm (3.9 - 5.3) LVPWd: 1.0 cm (0.6 - 1.1) IVSs: 1.4 cm LVIDs: 3.1 cm LVPWs: 1.6 cm Ao Diam: 3.3 cm (2.0 - 3.7) AV Cusp: 2.1 cm (1.5 - 2.6) LA Diam: 3.1 cm (2.7 - 3.8) MV EXCURSION: 10.759 mm (> 18.000) MV EF SLOPE: 92 mm/s (70 - 150) EPSS: 1.1 cm MV E Sekou: 0.95 m/s MV DecT: 322 ms MV A Sekou: 0.51 m/s MV E/A Ratio: 1.86 RAP: 5.00 mmHg RVSP: 18.87 mmHg FINDINGS -------- Sinus rhythm. This was a technically adequate study. The left ventricular size is normal. Left ventricular wall thickness is normal. Overall left vent ricular systolic function is normal with, an EF between 55 - 60 %. The right ventricle is normal in size and function. The left atrium is normal in size. The right atrium is normal in size. Aortic valve is trileaflet and is mildly thickened. The mitral valve leaflets are mildly thickened. There is trace mitral regurgitation. Trace tricuspid regurgitation present. The right ventricular systolic pressure, as measured by Dopp ler, is 18.87mmHg. Pulmonic valve appears structurally normal. The aortic root size is normal. Normal inferior vena cava with normal inspiratory collapse consistent with estimated right atrial pre ssure of 5 mmHg. The pericardium is normal. CONCLUSIONS -------- 1. Sinus rhythm. 2. This was a technically adequate study. 3. The left ventricular size is normal. 4. Left ventricular wall thickness is normal. 5. Overall left ventricular systolic function is normal with, an EF between 55 - 60 %. 6. The right ventricle is normal in size and function. 7. The left atrium is normal in size. 8. The right atrium is normal in size. 9. Aortic valve is trileaflet and is mildly thickened. 10. The mitral valve leaflets are mildly thickened. 11. There is trace mitral regurgitation. 12. Trace tricuspid regurgitation present. 13. The right ventricular systolic pressure, as measured by Doppler, is 18.87mmHg. 14. Pulmonic valve appears structurally normal. 15. The aortic root size is normal. 16. Normal inferior vena cava with normal inspiratory collapse consistent with estimated right atrial pressure of 5 mmHg. 17. The pericardium is normal. BUSINESS INTELLIGENCE DIRECTOR: Shantelle Baldwin RDCS
--- NOTE | 2017-12-03 11:52 | MR ---
EXAMINATION TYPE: MR brain wo con DATE OF EXAM: 12/03/2017 11:39 AM. COMPARISON: Previous study dated 03/21/2014. HISTORY: Technique: Multiplanar, multiecho imaging of the brain was obtained without intravenous contrast. FINDINGS: The cerebellar tonsils are slightly low-lying without evidence of a Chiari malformation. M idline structures are otherwise unremarkable. Echoplanar diffusion imaging is normal. There is sinus mucosal disease involving the maxillary sinuses bilaterally as well as the ethmoid sin uses. There are normal vascular flow voids. The orbits are normal. There is no evidence of a CP angle mass lesion. There is no acute focal lesion, mass effect or midline shift identified. I do not see evidence of int racranial blood. IMPRESSION: 1. NO ACUTE INTRACRANIAL ABNORMALITY. 2. 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
[2017-12-03 13:09] VITALS: BP 132/78; PULSE 89; TEMP 98.1
--- NOTE | 2017-12-03 14:21 | P.PN ---
Subjective Progress Note Date: 12/03/17 The patient is a 32-year-old woman who presented to the hospital with right facial droop and left arm numbness. She was admitted with possible TIA. She also has a history of cluster migraine. The patient had an MRI today which was unremarkable. There was evidence of some sinusitis. The patient feels well today. She has no residual weakness numbness or any neurologic deficit. She wants to go home. There is 0% stenosis in the lateral carotid arteries area and echocardiogram was unremarkable. Objective - Vital Signs Vital signs: Vital Signs Temp 98.1 F 12/03/17 12:00 Pulse 89 12/03/17 12:00 Resp 18 12/03/17 12:00 BP 132/78 12/03/17 12:00 Pulse Ox 94 L 12/03/17 12:00 Intake & Output 12/02/17 12/03/17 12/03/17 18:59 06:59 18:59 Intake Total 500 462 Output Total 600 Balance 500 -138 Weight 115.666 kg 116.3 kg Intake: Oral 500 462 Output: Urine 600 Other: Voiding Method Toilet Toilet # Voids 2 1 - Constitutional General appearance: Present: obese - EENT Eyes: Present: EOMI, PERRLA ENT: Present: hearing grossly normal - Respiratory Respiratory: bilateral: CTA - Cardiovascular Rhythm: regular - Neurologic Neurologic: Present: CNII-XII intact - Musculoskeletal Musculoskeletal: Present: strength equal bilaterally - Psychiatric Psychiatric: Present: A&O x's 3, appropriate affect - Labs CBC & Chem 7: 12/02/17 12:01 12/02/17 12:01 Labs: Abnormal Lab Results - Last 24 Hours (Table) 12/03/17 Range/Units 05:55 HDL Cholesterol 26 L (40-60) mg/dL Assessment and Plan (1) Transient cerebral ischemia Current Visit: Yes Status: Acute SNOMED Code(s): 557004971 (2) Migraine-cluster headache syndrome Current Visit: Yes Status: Acute SNOMED Code(s): 13145125 Plan: The patient is a 32-year-old woman who presented with transient episode of left arm weakness and right facial weakness. The patient was evaluated for possible TIA. She had an MRI scan of the brain which was unremarkable except for some sinusitis and low lying cerebellar tonsils without Arnold-Chiari syndrome. The patient has no complaints today. She is back to her baseline. Her neurologic examination is again nonfocal. Recommend patient be discharged on baby aspirin daily. Can follow-up outpatient regarding coagulopathy screening
--- NOTE | 2017-12-03 14:52 | P.DS ---
Providers Date of admission: 12/02/17 14:41 Attending physician: Yolanda Dickerson Consults: 12/02/17 14:41 Consult Physician Routine Consulting Provider: Billie Chan Consult Reason/Comments: TIA Do you want consulting provider notified?: Yes Primary care physician: [facility] Course: 32-year-old female presents emergency Department stating she had some tingling and numbness in her left arm couple hours prior to arrival and also had some right-sided facial droop. Patient states her friend noticed a facial droop and so did she while looking in the mirror. Patient denies any headache patient denies any actual weakness in her arms or legs. Patient denies any recent fever chills. Patient denies any chest pain difficulty breathing shortness of breath. Patient denies abdominal pain patient denies nausea vomiting diarrhea. Patient denies any recent injury or trauma. Patient does have a tingling numbness in the left arm as well as the right leg. When questioned patient to give me a questionable history of pain behind the eyes which happens often. Patient denied any family history of multiple sclerosis denied any premature coronary artery disease or cerebrovascular disease. Patient does smoke. Wheezing on exam coughing greenish phlegm. 12/03/2017 Patient had an MRI which was negative for any stroke on multiple sclerosis. Patient was evaluated by neurology carotid Doppler did not show any significant abnormality patient is being discharged today. Patient will be prescribed Synthroid patient already has albuterol at home for her mild the wheezing and asthma. Patient will be given doxepin for bronchitis as well. PHYSICAL EXAMINATION: GENERAL: The patient is alert and oriented x3, not in any acute distress. Well developed, well nourished. HEENT: Pupils are round and equally reacting to light. EOMI. No scleral icterus. No conjunctival pallor. Normocephalic, atraumatic. No pharyngeal erythema. No thyromegaly. CARDIOVASCULAR: S1 and S2 present. No murmurs, rubs, or gallops. PULMONARY: Chest is clear to auscultation, no wheezing or crackles. ABDOMEN: Soft, nontender, nondistended, normoactive bowel sounds. No palpable organomegaly. MUSCULOSKELETAL: No joint swelling or deformity. EXTREMITIES: No cyanosis, clubbing, or pedal edema. NEUROLOGICAL: Gross neurological examination did not reveal any focal deficits. SKIN: No rashes. Assessment and Plan Plan: --Tingling numbness in multiple areas: Rule out CVA, TIA, multiple sclerosis -Mild asthma or COPD exacerbation -P COD: -Hyperlipidemia -Gastric esophageal reflux disease next and-wasting: Counseling was provided Plan - Discharge Summary Discharge Rx Participant: No New Discharge Prescriptions: New Aspirin 81 mg PO DAILY #30 chewable Doxycycline Monohydrate [Monodox] 100 mg PO BID 3 Days #6 cap Omeprazole [PriLOSEC] 40 mg PO AC-BRKFST #14 capsule. No Action metFORMIN HCL [Glucophage] 850 mg PO BID Fluticasone [place] [Flonase [place]] 2 spr EA NOSTRIL DAILY PRN PRN Reason: Allergy Symptoms Ranitidine HCl [Zantac] 150 mg PO BID Omeprazole [PriLOSEC] 40 mg PO BID Albuterol Inhaler [Ventolin Hfa Inhaler] 2 puff INHALATION RT-Q6H PRN PRN Reason: Shortness Of Breath Loratadine [Claritin] 10 mg PO DAILY Discharge Medication List Fluticasone [place] [Flonase [place]] 2 spr EA NOSTRIL DAILY PRN [History] metFORMIN HCL [Glucophage] 850 mg PO BID 08/13/15 [History] Omeprazole [PriLOSEC] 40 mg PO BID 10/07/15 [History] Ranitidine HCl [Zantac] 150 mg PO BID 10/07/15 [History] Albuterol Inhaler [Ventolin Hfa Inhaler] 2 puff INHALATION RT-Q6H PRN 12/02/17 [ History] Loratadine [Claritin] 10 mg PO DAILY 12/02/17 [History] Aspirin 81 mg PO DAILY #30 chewable 12/03/17 [Rx] Doxycycline Monohydrate [Monodox] 100 mg PO BID 3 Days #6 cap 12/03/17 [Rx] Omeprazole [PriLOSEC] 40 mg PO AC-BRKFST #14 capsule. 12/03/17 [Rx] Follow up Appointment(s)/Referral(s): Alda Mendez MD [Primary Care Provider] - 3 Days Discharge Disposition: HOME SELF-CARE
[2017-12-05 11:06] LABS: Protein S Antigen 121 % (50 - 140)
[2017-12-05 14:15] LABS: APTT 39 Sec(s) (<43); Dilute Russell Viper Venom 34 Sec(s) (<44)
[2017-12-06 10:53] LABS: Protein C Antigen 109 % (72-160)
[2017-12-09 14:47] LABS: Protein C (Activity) 116 % (71-138)
== END 2017-12-03 16:02 | disposition home or self-care (01) ==
LOC: EC 11:52 → 6SEL 14:41
PROVIDERS: ADMIT Internal Medicine; ATTEND Internal Medicine
DX: R20.0 Anesthesia of skin (principal); M19.90 Unspecified osteoarthritis, unspecified site; E66.9 Obesity, unspecified; Z68.41 Body mass index [BMI] 40.0-44.9, adult; E28.2 Polycystic ovarian syndrome; K58.9 Irritable bowel syndrome, unspecified; M54.9 Dorsalgia, unspecified; G89.29 Other chronic pain; K21.9 Gastro-esophageal reflux disease without esophagitis; F32.9 Major depressive disorder, single episode, unspecified; F41.9 Anxiety disorder, unspecified; J44.1 Chronic obstructive pulmonary disease with (acute) exacerbation; K76.0 Fatty (change of) liver, not elsewhere classified; E78.5 Hyperlipidemia, unspecified; G45.9 Transient cerebral ischemic attack, unspecified; G44.009 Cluster headache syndrome, unspecified, not intractable; E78.00 Pure hypercholesterolemia, unspecified; J45.909 Unspecified asthma, uncomplicated; Z79.899 Other long term (current) drug therapy; Z79.84 Long term (current) use of oral hypoglycemic drugs; Z88.1 Allergy status to other antibiotic agents; Z88.5 Allergy status to narcotic agent; Z88.0 Allergy status to penicillin; Z88.8 Allergy status to other drugs, medicaments and biological substances; Z86.14 Personal history of Methicillin resistant Staphylococcus aureus infection; F17.210 Nicotine dependence, cigarettes, uncomplicated; Z71.6 Tobacco abuse counseling
CPT/HCPCS: 99285; 36415; 94640 ×3; 93005; 93306; 85303; 85306; 85302; 85305; 80061; 80053; 81241; 82550; 82553; 84484; 85025; 85610; 85730; 85613; 86147; 71046; 93880; 70450; 70551; G0378 ×2

== ENCOUNTER 2018-04-26 08:11 | Emergency (ER) | payer OTHER ==
[2018-04-26 08:15] VITALS: BP 104/65; RESP 18; TEMP 98.8
[2018-04-26] MEDS ORDERED: ALBUTEROL NEBULIZED 2.5 MG/3 ML INHALATION STA (08:28)
--- NOTE | 2018-04-26 08:46 | ED ---
URI HPI - General Chief Complaint: Upper Respiratory Infection Stated Complaint: Congestion Time Seen by Provider: 04/26/18 08:15 Source: patient, RN notes reviewed, old records reviewed Mode of arrival: ambulatory Limitations: no limitations - History of Present Illness Initial Comments: Patient is a 32-year-old female presents today with complaints of difficulty breathing cough congestion and fevers and chills and bodyaches. Symptoms started 5 days ago. Patient states that symptoms started after her niece came to her house with similar symptoms. Patient has had a nonproductive cough. She does report wheezing. She's been taking [id number] medication. - Related Data Home Medications Medication Instructions Recorded Confirmed Ibuprofen [Motrin] 800 mg PO Q6H PRN 04/26/18 04/26/18 Previous Rx's Medication Instructions Recorded methylPREDNISolone Dose Pack 4 mg PO DIRECTED #21 package 04/26/18 [Medrol Dose Pack] Allergies Allergy/AdvReac Type Severity Reaction Status Date / Time Penicillins Allergy Severe Anaphylaxis Verified 04/26/18 08:37 adhesive tape Allergy Rash/Hives Verified 04/26/18 08:37 clindamycin Allergy Nausea Verified 04/26/18 08:37 hydromorphone HCl AdvReac Intermediate Decreased Verified 04/26/18 08:37 [From Dilaudid] Blood Pressure Review of Systems ROS Statement: Those systems with pertinent positive or pertinent negative responses have been documented in the HPI. ROS Other: All systems not noted in ROS Statement are negative. Past Medical History Past Medical History: Asthma, GERD/Reflux, Hyperlipidemia, Osteoarthritis (OA) Additional Past Medical History / Comment(s): Obesity. PCOS, IBS, chronic back pain"disc herniation", "cluster headaches",fatty liver, esophogitis. Obstetric history is significant for 9 week spontaneous miscarriage. History of Any Multi-Drug Resistant Organisms: MRSA Date of last positivie culture/infection: 2007 MDRO Source:: right breast Past Surgical History: Back Surgery Additional Past Surgical History / Comment(s): Laminectomy Past Anesthesia/Blood Transfusion Reactions: Previous Problems w/ Anesthesia Additional Past Anesthesia/Blood Transfusion Reaction / Comment(s): difficulty waking up , clausterphobia Past Psychological History: Anxiety, Depression Smoking Status: Former smoker Past Alcohol Use History: Rare Past Drug Use History: Marijuana - Past Family History Mother Family Medical History: Cancer Father Family Medical History: Eye Disorder Additional Family Medical History / Comment(s): glaucoma, macular degeneration, low sodium General Exam - General Exam Comments Initial Comments: Alert and oriented 32-year-old female. No significant distress. General: Well appearing, well nourished, in no distress. Oriented x 3, normal mood and affect . Ambulating without difficulty. Skin: Good turgor, no rash, unusual bruising or prominent lesions Hair: Normal texture and distribution. HEENT: Head: Normocephalic, atraumatic, no visible or palpable masses, depressions, or scaring. Eyes: Visual acuity intact, conjunctiva clear, sclera non-icteric, EOM intact, PERRL. Ears: EACs clear, TMs translucent & cone of light visualized. hearing intact. Nose: No external lesions, mucosa non-inflamed, septum and turbinates normal Mouth: Mucous membranes moist, no mucosal lesions. Teeth/Gums: No obvious caries or periodontal disease. No gingival inflammation or significant resorption. Pharynx: Mucosa non-inflamed, no tonsillar hypertrophy or exudate Neck: Supple, without lesions, bruits, or adenopathy, thyroid non-enlarged and non-tender Heart: No cardiomegaly or thrills; regular rate and rhythm, no murmur or gallop Lungs: Clear to auscultation and percussion Abdomen: Bowel sounds normal, no tenderness, organomegaly, masses, or hernia Extremities: No amputations or deformities, cyanosis, edema or varicosities, peripheral pulses intact Musculoskeletal: Normal gait and station. No misalignment, asymmetry, crepitation, defects, tenderness, masses, effusions, decreased range of motion, instability, atrophy or abnormal strength or tone in the head, neck, spine, ribs, pelvis or extremities. Neurologic: CN 2-12 normal. Sensation to pain, touch, and proprioception normal. DTRs normal in upper and lower extremities. No pathologic reflexes. Limitations: no limitations Course Vital Signs 04/26/18 04/26/18 04/26/18 08:11 08:36 08:58 Temperature 98.8 F Pulse Rate 91 85 Respiratory 18 18 Rate Blood Pressure 104/65 O2 Sat by Pulse 98 Oximetry 04/26/18 09:07 Temperature Pulse Rate 88 Respiratory Rate Blood Pressure O2 Sat by Pulse Oximetry Medical Decision Making - Medical Decision Making 32-year-old female presents today with cough congestion fevers chills and body aches. Patient is positive for influenza a Patient of some wheezing noted. She was given albuterol breathing treatment. Patient's chest x-ray is negative for any acute process. Discussed symptoms of been greater than 4 days. Discussed that she would not benefit from Tamiflu. I discussed that she had close follow- up with primary care physician. We'll discharge Patient with steroids for bronchitis. All questions answered return parameters were discussed. - Lab Data Lab Results 04/26/18 Range/Units 08:41 Influenza Type A RNA Detected H (Not Detectd) Influenza Type B (PCR) Not Detected (Not Detectd) - Radiology Data Radiology results: report reviewed Disposition Clinical Impression: Influenza Disposition: HOME SELF-CARE Condition: Good Instructions (If sedation given, give patient instructions): Upper Respiratory Infection (ED), Influenza (ED) Additional Instructions: Patient advised to take the medicines as prescribed. Alternate Motrin and Tylenol. Have close follow-up with PCP. Return to emergency department if any alarming signs or symptoms occur. Prescriptions: methylPREDNISolone Dose Pack [Medrol Dose Pack] 4 mg PO DIRECTED #21 package Is patient prescribed a controlled substance at d/c from ED?: No Referrals: Alda Mendez MD [Primary Care Provider] - 1-2 days Time of Disposition: 10:13
[2018-04-26 09:08] VITALS: PULSE 88
--- NOTE | 2018-04-26 09:40 | XR ---
EXAMINATION TYPE: XR chest 2V DATE OF EXAM: 04/26/2018 COMPARISON: Chest x-ray December 02, 2017 HISTORY: Cough and congestion for 4 days TECHNIQUE: Frontal and lateral views of the chest are obtained. FINDINGS: There is no focal air space opacity, pleural effusion, or pneumothorax seen. The cardiac silhouette size is within normal limits. The osseous structures are intact. IMPRESSION: No suspicious acute pulmonary process.
== END 2018-04-26 10:32 | disposition home or self-care (01) ==
LOC: EC 08:11
DX: J10.1 Influenza due to other identified influenza virus with other respiratory manifestations (principal); Z86.14 Personal history of Methicillin resistant Staphylococcus aureus infection; Z87.891 Personal history of nicotine dependence; Z88.0 Allergy status to penicillin; Z88.1 Allergy status to other antibiotic agents; Z88.5 Allergy status to narcotic agent; Z91.048 Other nonmedicinal substance allergy status
CPT/HCPCS: 71046; 87502; 94640; 99284

== ENCOUNTER 2018-05-10 14:51 | Emergency (ER) | payer OTHER ==
[2018-05-10 15:03] VITALS: RESP 18
[2018-05-10] MEDS ORDERED: LIDOCAINE 1% INJ 10MG/ML (20 ML MDV) SQ ONE (15:30)
--- NOTE | 2018-05-10 15:55 | ED ---
General Adult HPI - General Chief complaint: Wound/Laceration Stated complaint: Finger lac Time Seen by Provider: 05/10/18 15:30 Source: patient, RN notes reviewed Mode of arrival: ambulatory Limitations: no limitations - History of Present Illness Initial comments: Patient is a pleasant 32-year-old female presenting to the emergency department with concerns for left middle finger laceration. Incident occurred prior to arrival. Patient was sharpening a knife when it slipped and cut her left finger. This was on the dorsal side. Patient did have bleeding despite applying pressure. Last tetanus immunization was less than 5 years ago. No other areas of injury. Patient has not noticed any weakness of her finger. - Related Data Home Medications Medication Instructions Recorded Confirmed Ibuprofen [Motrin] 800 mg PO Q6H PRN 04/26/18 04/26/18 Previous Rx's Medication Instructions Recorded methylPREDNISolone Dose Pack 4 mg PO DIRECTED #21 package 04/26/18 [Medrol Dose Pack] Allergies Allergy/AdvReac Type Severity Reaction Status Date / Time Penicillins Allergy Severe Anaphylaxis Verified 05/10/18 15:04 adhesive tape Allergy Rash/Hives Verified 05/10/18 15:04 clindamycin Allergy Nausea Verified 05/10/18 15:04 hydromorphone HCl AdvReac Intermediate Decreased Verified 05/10/18 15:04 [From Dilaudid] Blood Pressure Review of Systems ROS Statement: Those systems with pertinent positive or pertinent negative responses have been documented in the HPI. ROS Other: All systems not noted in ROS Statement are negative. Constitutional: Denies: fever Eyes: Denies: eye pain ENT: Denies: ear pain Respiratory: Denies: cough Cardiovascular: Denies: chest pain Endocrine: Denies: fatigue Gastrointestinal: Denies: abdominal pain Genitourinary: Denies: dysuria Musculoskeletal: Denies: back pain Skin: Reports: other (Laceration) Neurological: Denies: weakness Past Medical History Past Medical History: Asthma, GERD/Reflux, Hyperlipidemia, Osteoarthritis (OA) Additional Past Medical History / Comment(s): Obesity. PCOS, IBS, chronic back pain"disc herniation", "cluster headaches",fatty liver, esophogitis. Obstetric history is significant for 9 week spontaneous miscarriage. History of Any Multi-Drug Resistant Organisms: MRSA Date of last positivie culture/infection: 2007 MDRO Source:: right breast Past Surgical History: Back Surgery Additional Past Surgical History / Comment(s): Laminectomy Past Anesthesia/Blood Transfusion Reactions: Previous Problems w/ Anesthesia Additional Past Anesthesia/Blood Transfusion Reaction / Comment(s): difficulty waking up , clausterphobia Past Psychological History: Anxiety, Depression Smoking Status: Former smoker Past Alcohol Use History: Rare Past Drug Use History: Marijuana - Past Family History Mother Family Medical History: Cancer Father Family Medical History: Eye Disorder Additional Family Medical History / Comment(s): glaucoma, macular degeneration, low sodium General Exam Limitations: no limitations General appearance: alert, in no apparent distress Head exam: Present: atraumatic Eye exam: Present: normal appearance Respiratory exam: Present: normal lung sounds bilaterally Cardiovascular Exam: Present: regular rate, normal rhythm Left Hand Wrist exam: Present: laceration (Left dorsal middle finger just distal to the PIP with laceration. No tendon visualized. Good strength against resistance. Cap refill less than 2 seconds. Sensation intact.) Vascular: Present: normal capillary refill Neurological exam: Present: alert. Absent: motor sensory deficit Psychiatric exam: Present: normal affect, normal mood Skin exam: Present: other (Finger laceration) Course Vital Signs 05/10/18 15:01 Temperature 97.9 F Pulse Rate 79 Respiratory 18 Rate Blood Pressure 109/66 O2 Sat by Pulse 100 Oximetry Procedures - Laceration Laceration #1 Consent Obtained: verbal consent Indication: laceration Site: hand Size (cm): 3 Description: linear Depth: simple, single layer Anesthetic Used: lidocaine 1% Anesthesia Technique: nerve block Amount (mls): 3 Type of Sutures: nylon Size of Sutures: 4-0 Number of Sutures: 5 Technique: simple, interrupted Patient Tolerated Procedure: well, no complications - Nerve Block Consent Obtained: verbal consent Local Anesthetic Used: Lidocaine 1% Side: left Nerve Blocks: digital (Middle finger) Procedure Successful: Yes Complications: none Patient Tolerated Procedure: well, no complications Disposition Clinical Impression: Laceration Disposition: HOME SELF-CARE Condition: Stable Instructions (If sedation given, give patient instructions): Laceration (ED), Care For Your Stitches (ED) Additional Instructions: Please follow-up with primary care physician in the next couple of days for recheck. Suture removal in 9-10 days. Twice daily wash with soap and water, apply antibiotic ointment, and keep bandaged. Return for weakness, increased pain, redness, worsening symptoms or other concerns. Is patient prescribed a controlled substance at d/c from ED?: No Referrals: Alda Mendez MD [Primary Care Provider] - 1-2 days Time of Disposition: 16:10
[2018-05-10 16:35] VITALS: BP 116/74; PULSE 78; TEMP 98.4
== END 2018-05-10 16:34 | disposition home or self-care (01) ==
LOC: EC 14:51
DX: S61.213A Laceration without foreign body of left middle finger without damage to nail, initial encounter (principal); E66.9 Obesity, unspecified; Z68.37 Body mass index [BMI] 37.0-37.9, adult; Z87.891 Personal history of nicotine dependence; Z86.14 Personal history of Methicillin resistant Staphylococcus aureus infection; Z88.0 Allergy status to penicillin; Z88.1 Allergy status to other antibiotic agents; Z88.5 Allergy status to narcotic agent; Z91.048 Other nonmedicinal substance allergy status; W26.0XXA Contact with knife, initial encounter; Y92.009 Unspecified place in unspecified non-institutional (private) residence as the place of occurrence of the external cause
CPT/HCPCS: 12002; 99282

== ENCOUNTER 2018-12-05 19:08 | Emergency (ER) | payer OTHER ==
[2018-12-05 19:42] VITALS: BP 115/68; PULSE 96; RESP 16
[2018-12-05 19:43] VITALS: TEMP 98.8
--- NOTE | 2018-12-05 21:23 | ED ---
ENT HPI - General Chief complaint: ENT Stated complaint: Sore throat, cough Time Seen by Provider: 12/05/18 19:22 Source: patient Mode of arrival: ambulatory Limitations: no limitations - History of Present Illness Initial comments: 33yo female currently 14 weeks with no PMH presented to the ER for cc of for chief complaint of cough congestion sore throat x 5 days.Denies any chest pain shortness of breath. Denies fevers. Denies any abdominal pain cramping vaginal bleeding dysuria or urgency frequency or vaginal discharge. Mother states that her son has similar symptoms. Mother denies any other complaints. Remaining review of systems negative including no headaches or neck stiffness. - Related Data Home Medications Medication Instructions Recorded Confirmed Ibuprofen [Motrin] 800 mg PO Q6H PRN 04/26/18 04/26/18 Previous Rx's Medication Instructions Recorded methylPREDNISolone Dose Pack 4 mg PO DIRECTED #21 package 04/26/18 [Medrol Dose Pack] Allergies Allergy/AdvReac Type Severity Reaction Status Date / Time Penicillins Allergy Severe Anaphylaxis Verified 05/10/18 15:04 adhesive tape Allergy Rash/Hives Verified 05/10/18 15:04 clindamycin Allergy Nausea Verified 05/10/18 15:04 hydromorphone HCl AdvReac Intermediate Decreased Verified 05/10/18 15:04 [From Dilaudid] Blood Pressure Review of Systems ROS Statement: Those systems with pertinent positive or pertinent negative responses have been documented in the HPI. ROS Other: All systems not noted in ROS Statement are negative. Past Medical History Past Medical History: Asthma, GERD/Reflux, Hyperlipidemia, Osteoarthritis (OA) Additional Past Medical History / Comment(s): Obesity. PCOS, IBS, chronic back pain"disc herniation", "cluster headaches",fatty liver, esophogitis. Obstetric history is significant for 9 week spontaneous miscarriage. History of Any Multi-Drug Resistant Organisms: MRSA Date of last positivie culture/infection: 2007 MDRO Source:: right breast Past Surgical History: Back Surgery Additional Past Surgical History / Comment(s): Laminectomy Past Anesthesia/Blood Transfusion Reactions: Previous Problems w/ Anesthesia Additional Past Anesthesia/Blood Transfusion Reaction / Comment(s): difficulty waking up , clausterphobia Past Psychological History: Anxiety, Depression Smoking Status: Former smoker Past Alcohol Use History: Rare Past Drug Use History: Marijuana - Past Family History Mother Family Medical History: Cancer Father Family Medical History: Eye Disorder Additional Family Medical History / Comment(s): glaucoma, macular degeneration, low sodium General Exam - General Exam Comments Initial Comments: General: The patient is awake and alert, in no distress, and does not appear acutely ill. Eye: +3 mm pupils are equal, round and reactive to light, extra-ocular movements are intact. No nystagmus. There is normal conjunctiva bilaterally. No signs of icterus. No photophobia Ears, nose, mouth and throat: There are moist mucous membranes and no oral l esions. Oropharynx was not erythematous there is no tonsillar enlargement exudates or lesions. Uvula midline. Tympanic membranes are not erythematous or is no effusions bulging or retraction. No tenderness to palpation of the mastoid. No anterior cervical lymphadenopathy. Rhinorrhea, clear and bilateral nares. No tripoding, no drooling. Neck: The neck is supple, there is no tenderness or JVD. No nuchal rigidity negative Brudzinski and Kernig Cardiovascular: There is a regular rate and rhythm. No murmur, rub or gallop is appreciated. Respiratory: Lungs are clear to auscultation, respirations are non-labored, breath sounds are equal. No wheezes, stridor, rales, or rhonchi. No retractions or abdominal breathing. Gastrointestinal: Soft, non-distended, non-tender abdomen without masses or organomegaly noted. There is no rebound or guarding present. Bowel sounds are unremarkable. Musculoskeletal: Normal ROM, no tenderness. Strength 5/5. Sensation intact. Radial pulses equal bilaterally 2+. Neurological: A&O x 3. CN II-XII intact grossly, There are no obvious motor or sensory deficits. Coordination appears grossly intact. Speech appears normal, no muffling. Skin: Skin is warm and dry and no rashes or lesions are noted. No extremity edema Psychiatric: Cooperative Limitations: no limitations Course Vital Signs 12/05/18 19:35 Temperature 98.8 F Pulse Rate 96 Respiratory 16 Rate Blood Pressure 115/68 O2 Sat by Pulse 99 Oximetry Medical Decision Making - Medical Decision Making 33-year-old female presents emergency Chief complaint of cough sore throat. No fevers. Afebrile appearing on arrival. Currently 14 weeks . Lungs clear no signs of focal consolidation. No history of fever. Rapid strep and influenza negative. At this time I do feel patient is stable for discharge with outpatient primary care follow-up. Return parameters were discussed and patient was discharged appearing well after discussing case with Dr. Hercules - Lab Data Lab Results 12/05/18 12/05/18 Range/Units 20:05 20:05 Influenza Type A RNA Not Detected (Not Detectd) Influenza Type B (PCR) Not Detected (Not Detectd) Group A Strep Rapid Negative (Negative) Disposition Clinical Impression: Pharyngitis, Cough Disposition: HOME SELF-CARE Condition: Good Instructions (If sedation given, give patient instructions): Pharyngitis (ED), Viral Syndrome (ED) Additional Instructions: Please use medication as discussed. Please follow-up with family doctor in the next 2 days. Please return to emergency room if the symptoms increase or worsen or for any other concerns. Is patient prescribed a controlled substance at d/c from ED?: No Referrals: Alda Mendez MD [Primary Care Provider] - 1-2 days Time of Disposition: 21:23
== END 2018-12-05 21:35 | disposition home or self-care (01) ==
LOC: EC 19:08
DX: O99.511 Diseases of the respiratory system complicating pregnancy, first trimester (principal); J02.9 Acute pharyngitis, unspecified; O99.89 Other specified diseases and conditions complicating pregnancy, childbirth and the puerperium; M19.90 Unspecified osteoarthritis, unspecified site; O99.211 Obesity complicating pregnancy, first trimester; E66.9 Obesity, unspecified; Z87.09 Personal history of other diseases of the respiratory system; Z86.14 Personal history of Methicillin resistant Staphylococcus aureus infection; Z87.891 Personal history of nicotine dependence; Z79.1 Long term (current) use of non-steroidal anti-inflammatories (NSAID); Z88.0 Allergy status to penicillin; Z91.048 Other nonmedicinal substance allergy status; Z88.1 Allergy status to other antibiotic agents; Z88.5 Allergy status to narcotic agent; Z3A.14 14 weeks gestation of pregnancy
CPT/HCPCS: 87081; 87430; 87502; 99283

== ENCOUNTER 2019-01-12 10:29 | Emergency (ER) | payer OTHER ==
[2019-01-12 10:47] VITALS: TEMP 99.6
[2019-01-12] MEDS ORDERED: ONDANSETRON 4 MG/2 ML VIAL IVP STA (10:51)
[2019-01-12] MEDS ORDERED: SODIUM CHLORIDE 0.9% 2,000 ML IV STA (10:51)
[2019-01-12 11:39] LABS: Basophils % (A) 0 %; Eosinophils % (A) 0 %; HCT 34.4 % (34.0-46.0); Lymphocytes # (A) 0.4 k/uL (1.0-4.8); Lymphocytes % (A) 6 %; MCH 31.8 pg (25.0-35.0); MCHC 34.8 g/dL (31.0-37.0); MCV 91.3 fL (80.0-100.0); Mean Platelet Volume 6.1; Monocytes # (A) 0.1 k/uL (0-1.0); Monocytes % (A) 2 %; Neutrophils # (A) 6.2 k/uL (1.3-7.7); Neutrophils % (A) 91 %; Platelet Count 211 k/uL (150-450); RBC 3.77 m/uL (3.80-5.40); RDW 13.7 % (11.5-15.5); WBC 6.8 k/uL (3.8-10.6)
[2019-01-12 11:40] LABS: Appearance,Urine Cloudy (Clear); Bacteria,Urine Moderate /hpf; Bilirubin,Urine Negative (Negative); Blood,Urine Negative (Negative); Color,Urine Yellow; Glucose,Urine (UA) Negative (Negative); Ketones,Urine 2+ (Negative); Leukocyte Esterase,Urine Large (Negative); Mucus,Urine Rare /hpf; Nitrite,Urine Negative (Negative); PH, Urine 6.5 (5.0-8.0); Protein,Urine Trace (Negative); RBC,Urine 2 /hpf (0-5); Specific Gravity,Urine 1.029 (1.001-1.035); Squamous Epithelial Cell,Urine 22 /hpf (0-4); Urobilinogen,Urine <2.0 mg/dL (<2.0)
[2019-01-12 11:49] LABS: ALT 19 U/L (9-52); AST 16 U/L (14-36); African American GFR (CKD) >90 (>60 ml/min/1.73 sqM); Albumin 3.5 g/dL (3.5-5.0); Alkaline Phosphatase 63 U/L (38-126); Anion Gap 8 mmol/L; Blood Urea Nitrogen 13 mg/dL (7-17); Calcium 8.6 mg/dL (8.4-10.2); Carbon Dioxide 22 mmol/L (22-30); Chloride 108 mmol/L (98-107); Glucose 96 mg/dL (74-99); Non-African American GFR(CKD) >90 (>60 ml/min/1.73 sqM); Potassium 3.9 mmol/L (3.5-5.1); Sodium 138 mmol/L (137-145); Total Bilirubin 0.4 mg/dL (0.2-1.3); Total Protein 6.3 g/dL (6.3-8.2)
--- NOTE | 2019-01-12 12:43 | ED ---
Nausea/Vomiting/Diarrhea HPI - General Chief complaint: Nausea/Vomiting/Diarrhea Stated complaint: NVD Time Seen by Provider: 01/12/19 10:51 Source: family Mode of arrival: ambulatory Limitations: no limitations - History of Present Illness Initial comments: The patient is a 33-year-old female with past history of IBS who presents to emergency room in with reported nausea, vomiting and diarrhea. She reports that her son has recently been sick. She denies any fevers or chills and him. No concern for food poisoning. She states that she has been in close contact with him. As of last night she did develop nausea and vomiting. States that she had several episodes overnight and into this morning. Denies hematemesis or bilious vomiting. She has been attempting to drink water however cannot even tolerate this. She is currently 20 weeks . She is . First was a spontaneous miscarriage however this has been going well. She sees Dr. Figueredo. Denies any abdominal pain. No vaginal bleeding or discharge. No l oss of fluid. Denies any changes in her urination to include dysuria, hematuria or difficulty voiding. Does admit to multiple episodes of brown, watery stool. 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, production manufacturing worker modifying factors - Related Data Home Medications Medication Instructions Recorded Confirmed Ibuprofen [Motrin] 800 mg PO Q6H PRN 04/26/18 04/26/18 Previous Rx's Medication Instructions Recorded methylPREDNISolone Dose Pack 4 mg PO DIRECTED #21 package 04/26/18 [Medrol Dose Pack] Cephalexin [Keflex] 500 mg PO Q12HR #14 cap 01/12/19 Metoclopramide [Reglan] 10 mg PO TID PRN #15 tab 01/12/19 Allergies Allergy/AdvReac Type Severity Reaction Status Date / Time Penicillins Allergy Severe Anaphylaxis Verified 01/12/19 10:47 adhesive tape Allergy Rash/Hives Verified 01/12/19 10:47 clindamycin Allergy Nausea Verified 01/12/19 10:47 hydromorphone HCl AdvReac Intermediate Decreased Verified 01/12/19 10:47 [From Dilaudid] Blood Pressure Review of Systems ROS Statement: Those systems with pertinent positive or pertinent negative responses have been documented in the HPI. ROS Other: All systems not noted in ROS Statement are negative. Past Medical History Past Medical History: Asthma, GERD/Reflux, Hyperlipidemia, Osteoarthritis (OA) Additional Past Medical History / Comment(s): Obesity. PCOS, IBS, chronic back pain"disc herniation", "cluster headaches",fatty liver, esophogitis. Obstetric history is significant for 9 week spontaneous miscarriage. History of Any Multi-Drug Resistant Organisms: MRSA Date of last positivie culture/infection: 2007 MDRO Source:: right breast Past Surgical History: Back Surgery Additional Past Surgical History / Comment(s): Laminectomy Past Anesthesia/Blood Transfusion Reactions: Previous Problems w/ Anesthesia Additional Past Anesthesia/Blood Transfusion Reaction / Comment(s): difficulty waking up , clausterphobia Past Psychological History: Anxiety, Depression Smoking Status: Former smoker Past Alcohol Use History: Rare Past Drug Use History: Marijuana - Past Family History Mother Family Medical History: Cancer Father Family Medical History: Eye Disorder Additional Family Medical History / Comment(s): glaucoma, macular degeneration, low sodium General Exam Limitations: no limitations Course Vital Signs 01/12/19 01/12/19 01/12/19 10:45 13:38 13:39 Temperature 99.6 F Pulse Rate 122 H 95 88 Respiratory 22 16 18 Rate Blood Pressure 99/54 101/64 110/64 O2 Sat by Pulse 99 98 98 Oximetry Medical Decision Making - Medical Decision Making The patient is placed into room 26. A thorough history and physical exam was performed. Peripheral IV was established. The patient was given a 2 L bolus of normal saline. Vitals are obtained and she is tachycardic. He did obtain an EKG which demonstrates a sinus tachycardia. I recommended laboratory studies and a stool sample. Irises are performed which demonstrate a normal CBC and CMP. Magnesium is mildly low at 1.5. Urinalysis is performed which demonstrates 2+ ketones, large leukocyte esterase, 7 white blood cells, 2 squamous epithelial cells and moderate bacteria. I did perform a bedside ultrasound. It does demonstrate an intrauterine . There is positive heart room and with a heart rate of 153. Images are placed on the patient's chart. The patient does report improvement in her symptoms at this time. She is by mouth challenge and does tolerate water and crackers by mouth. At this time she will be discharged home and given a prescription for Keflex for her bacturia. She is also given a prescription for Reglan. She is to follow-up with her [facility] in the next 2-4 days. Return to the emergency room for any new or worsening symptoms. The patient was discharged home in stable condition - Lab Data Result diagrams: 01/12/19 11:20 01/12/19 11:20 Lab Results 01/12/19 01/12/19 01/12/19 Range/Units 11:13 11:13 11:20 WBC 6.8 (3.8-10.6) k/uL RBC 3.77 L (3.80-5.40) m/uL Hgb 12.0 (11.4-16.0) gm/dL Hct 34.4 (34.0-46.0) % MCV 91.3 (80.0-100.0) fL MCH 31.8 (25.0-35.0) pg MCHC 34.8 (31.0-37.0) g/dL RDW 13.7 (11.5-15.5) % Plt Count 211 (150-450) k/uL Neutrophils % 91 % Lymphocytes % 6 % Monocytes % 2 % Eosinophils % 0 % Basophils % 0 % Neutrophils # 6.2 (1.3-7.7) k/uL Lymphocytes # 0.4 L (1.0-4.8) k/uL Monocytes # 0.1 (0-1.0) k/uL Eosinophils # 0.0 (0-0.7) k/uL Basophils # 0.0 (0-0.2) k/uL Sodium (137-145) mmol/L Potassium (3.5-5.1) mmol/L Chloride (98-107) mmol/L Carbon Dioxide (22-30) mmol/L Anion Gap mmol/L BUN (7-17) mg/dL Creatinine (0.52-1.04) mg/dL Est GFR (CKD-EPI)AfAm (>60 ml/min/1.73 sqM) Est GFR (CKD-EPI)NonAf (>60 ml/min/1.73 sqM) Glucose (74-99) mg/dL Calcium (8.4-10.2) mg/dL Magnesium (1.6-2.3) mg/dL Total Bilirubin (0.2-1.3) mg/dL AST (14-36) U/L ALT (9-52) U/L Alkaline Phosphatase (38-126) U/L Total Protein (6.3-8.2) g/dL Albumin (3.5-5.0) g/dL Lipase (23-300) U/L Urine Color Yellow Urine Appearance Cloudy H (Clear) Urine pH 6.5 (5.0-8.0) Ur Specific [place] 1.029 (1.001-1.035) Urine Protein Trace H (Negative) Urine Glucose (UA) Negative (Negative) Urine Ketones 2+ H (Negative) Urine Blood Negative (Negative) Urine Nitrite Negative (Negative) Urine Bilirubin Negative (Negative) Urine Urobilinogen <2.0 (<2.0) mg/dL Ur Leukocyte Esterase Large H (Negative) Urine RBC 2 (0-5) /hpf Urine WBC 7 H (0-5) /hpf Ur Squamous Epith Cells 22 H (0-4) /hpf Urine Bacteria Moderate H (None) /hpf Urine Mucus Rare H (None) /hpf Urine HCG, Qual Detected (Not Detectd) 01/12/19 01/12/19 Range/Units 11:20 11:20 WBC (3.8-10.6) k/uL RBC (3.80-5.40) m/uL Hgb (11.4-16.0) gm/dL Hct (34.0-46.0) % MCV (80.0-100.0) fL MCH (25.0-35.0) pg MCHC (31.0-37.0) g/dL RDW (11.5-15.5) % Plt Count (150-450) k/uL Neutrophils % % Lymphocytes % % Monocytes % % Eosinophils % % Basophils % % Neutrophils # (1.3-7.7) k/uL Lymphocytes # (1.0-4.8) k/uL Monocytes # (0-1.0) k/uL Eosinophils # (0-0.7) k/uL Basophils # (0-0.2) k/uL Sodium 138 (137-145) mmol/L Potassium 3.9 (3.5-5.1) mmol/L Chloride 108 H (98-107) mmol/L Carbon Dioxide 22 (22-30) mmol/L Anion Gap 8 mmol/L BUN 13 (7-17) mg/dL Creatinine 0.46 L (0.52-1.04) mg/dL Est GFR (CKD-EPI)AfAm >90 (>60 ml/min/1.73 sqM) Est GFR (CKD-EPI)NonAf >90 (>60 ml/min/1.73 sqM) Glucose 96 (74-99) mg/dL Calcium 8.6 (8.4-10.2) mg/dL Magnesium 1.5 L (1.6-2.3) mg/dL Total Bilirubin 0.4 (0.2-1.3) mg/dL AST 16 (14-36) U/L ALT 19 (9-52) U/L Alkaline Phosphatase 63 (38-126) U/L Total Protein 6.3 (6.3-8.2) g/dL Albumin 3.5 (3.5-5.0) g/dL Lipase 38 (23-300) U/L Urine Color Urine Appearance (Clear) Urine pH (5.0-8.0) Ur Specific [place] (1.001-1.035) Urine Protein (Negative) Urine Glucose (UA) (Negative) Urine Ketones (Negative) Urine Blood (Negative) Urine Nitrite (Negative) Urine Bilirubin (Negative) Urine Urobilinogen (<2.0) mg/dL Ur Leukocyte Esterase (Negative) Urine RBC (0-5) /hpf Urine WBC (0-5) /hpf Ur Squamous Epith Cells (0-4) /hpf Urine Bacteria (None) /hpf Urine Mucus (None) /hpf Urine HCG, Qual (Not Detectd) - EKG Data EKG Comments: EKG demonstrates a sinus tachycardia with a ventricular rate of 101. IL interval 140. QRS 76. QTC 466. No acute ST segment elevations or depressions concerning for ischemic changes Disposition Clinical Impression: Dehydration, Nausea & vomiting Disposition: HOME SELF-CARE Condition: Stable Instructions (If sedation given, give patient instructions): Acute Nausea and Vomiting (ED), Urinary Tract Infection in (ED) Additional Instructions: Please follow up with your [facility] in 2-4 days. Return to the emergency room for any new or worsening symptoms Prescriptions: Cephalexin [Keflex] 500 mg PO Q12HR #14 cap Metoclopramide [Reglan] 10 mg PO TID PRN #15 tab PRN Reason: Vomiting Is patient prescribed a controlled substance at d/c from ED?: No Referrals: Alda Mendez MD [Primary Care Provider] - 1-2 days Summer Frey MD [STAFF PHYSICIAN] - 1-2 days Time of Disposition: 13:21
[2019-01-12 13:41] VITALS: BP 110/64; PULSE 88; RESP 18
== END 2019-01-12 13:24 | disposition home or self-care (01) ==
LOC: EC 10:29
DX: E86.0 Dehydration (principal); R11.2 Nausea with vomiting, unspecified; R00.0 Tachycardia, unspecified; Z32.02 Encounter for pregnancy test, result negative; Z88.0 Allergy status to penicillin; Z88.1 Allergy status to other antibiotic agents; Z88.5 Allergy status to narcotic agent; Z91.048 Other nonmedicinal substance allergy status; Z87.891 Personal history of nicotine dependence
CPT/HCPCS: 36415; 93005; 80053; 83690; 83735; 85025; 81001; 81025; 99284; 96374; 96361 ×2; J2405

== ENCOUNTER 2019-03-29 15:20 | Emergency (ER) | payer OTHER ==
[2019-03-29 15:27] VITALS: BP 128/68; RESP 20; TEMP 98.2
[2019-03-29] MEDS ORDERED: ALBUTEROL NEBULIZED 2.5 MG/3 ML INHALATION STA (15:44)
--- NOTE | 2019-03-29 15:58 | ED ---
General Adult HPI - General Chief complaint: Upper Respiratory Infection Stated complaint: SOB, Throat Pain Time Seen by Provider: 03/29/19 15:32 Source: patient, RN notes reviewed Mode of arrival: ambulatory Limitations: no limitations - History of Present Illness Initial comments: 33-year-old female currently 30 weeks with a past medical history of asthma, GERD, hyperlipidemia, osteoarthritis presents to the emergency department for chief complaint of cough and congestion. Patient states she has had coughing and congestion for the past 5 days. States her son is also sick with this. Patient unsure if she has had fevers but has felt warm and cold at home. Patient has a history of asthma. She saw her [facility] [employer] yesterday who prescr ibed albuterol. No pain otherwise. No significant shortness of breath. Patient states she also saw urgent care several days ago and had a strep swab done however he states they did not get a good sample. Patient also complaining of a sore throat.Patient has no other complaints at this time including shortness of breath, chest pain, abdominal pain, nausea or vomiting, headache, or visual changes. - Related Data Home Medications Medication Instructions Recorded Confirmed Ibuprofen [Motrin] 800 mg PO Q6H PRN 04/26/18 04/26/18 Previous Rx's Medication Instructions Recorded methylPREDNISolone Dose Pack 4 mg PO DIRECTED #21 package 04/26/18 [Medrol Dose Pack] Cephalexin [Keflex] 500 mg PO Q12HR #14 cap 01/12/19 Metoclopramide [Reglan] 10 mg PO TID PRN #15 tab 01/12/19 Allergies Allergy/AdvReac Type Severity Reaction Status Date / Time Penicillins Allergy Severe Anaphylaxis Verified 03/29/19 15:24 adhesive tape Allergy Rash/Hives Verified 03/29/19 15:24 clindamycin Allergy Nausea Verified 03/29/19 15:24 hydromorphone HCl AdvReac Intermediate Decreased Verified 03/29/19 15:24 [From Dilaudid] Blood Pressure Review of Systems ROS Statement: Those systems with pertinent positive or pertinent negative responses have been documented in the HPI. ROS Other: All systems not noted in ROS Statement are negative. Past Medical History Past Medical History: Asthma, GERD/Reflux, Hyperlipidemia, Osteoarthritis (OA) Additional Past Medical History / Comment(s): Obesity. PCOS, IBS, chronic back pain"disc herniation", "cluster headaches",fatty liver, esophogitis. Obstetric history is significant for 9 week spontaneous miscarriage. History of Any Multi-Drug Resistant Organisms: MRSA Date of last positivie culture/infection: 2007 MDRO Source:: right breast Past Surgical History: Back Surgery Additional Past Surgical History / Comment(s): Laminectomy Past Anesthesia/Blood Transfusion Reactions: Previous Problems w/ Anesthesia Additional Past Anesthesia/Blood Transfusion Reaction / Comment(s): difficulty waking up , clausterphobia Past Psychological History: Anxiety, Depression Smoking Status: Former smoker Past Alcohol Use History: None Reported, Rare Past Drug Use History: None Reported, Marijuana - Past Family History Mother Family Medical History: Cancer Father Family Medical History: Eye Disorder Additional Family Medical History / Comment(s): glaucoma, macular degeneration, low sodium General Exam Limitations: no limitations General appearance: alert, in no apparent distress Head exam: Present: atraumatic, normocephalic, normal inspection Eye exam: Present: normal appearance, PERRL, EOMI. Absent: scleral icterus, conjunctival injection, periorbital swelling ENT exam: Present: normal exam, normal oropharynx (Mildly erythematous, postnasal drip noted. No exudates present. Uvula midline.), mucous membranes moist, TM's normal bilaterally, normal external ear exam Neck exam: Present: normal inspection, full ROM. Absent: tenderness, meningismus, lymphadenopathy Respiratory exam: Present: wheezes (Wheezing noted throughout lung lutz bilaterally). Absent: respiratory distress, rales, rhonchi, stridor Cardiovascular Exam: Present: regular rate, normal rhythm, normal heart sounds. Absent: systolic murmur, diastolic murmur, rubs, gallop, clicks GI/Abdominal exam: Present: soft, normal bowel sounds. Absent: distended, tenderness, guarding, rebound, rigid Neurological exam: Present: alert Course Vital Signs 03/29/19 03/29/19 03/29/19 15:24 16:08 16:20 Temperature 98.2 F Pulse Rate 111 H 115 H 108 H Respiratory 20 Rate Blood Pressure 128/68 O2 Sat by Pulse 98 Oximetry Medical Decision Making - Medical Decision Making Vitals are stable. Patient is mildly tachycardic which is likely secondary to albuterol as she just had an albuterol treatment prior to coming to the ER and then had one again while in the emergency department. She is 98% on room air. Patient is denying shyness of breath but does feel like she is having a flare of her asthma. States she saw her [facility] [employer] yesterday and was started on albuterol every 8 hours. States this does help but then she gets worse again. On exam patient has wild wheezing noted throughout lung lutz. This improved significantly after breathing treatment was given. Influenza and strep are negative. Discussed risks versus benefits of chest x-ray and at this time patient prefers to have chest x-ray obtained. This shows no acute cardiopulmonary process. Fluids and strep are negative.. Discussed culture will be sent for strep. Discussed that patient can use albuterol every 4-6 hours as needed. Patient does have an inhaler at home. She also has the medication for her nebulizer. Dr. Chandler did a bedside ultrasound for heart tones. Good tones were appreciated. positive movement, head down. At this time patient can follow up with primary care and OBGYN. She'll return if she has any worsening symptoms. - Lab Data Lab Results 03/29/19 03/29/19 Range/Units 15:40 15:40 Influenza Type A RNA Not Detected (Not Detectd) Influenza Type B (PCR) Not Detected (Not Detectd) Group A Strep Rapid Negative (Negative) Disposition Clinical Impression: Cough Disposition: HOME SELF-CARE Condition: Good Instructions (If sedation given, give patient instructions): Acute Cough (ED) Additional Instructions: Please do your breathing treatments every 4-6 hours as needed. You may take [id number] plain Sudafed. Follow-up with your [employer] [employer] and primary care. If you have any worsening symptoms return to the emergency department. If strep results are positive over the next 2 days from the lab you will get a phone call. Is patient prescribed a controlled substance at d/c from ED?: No Referrals: Alda Mendez MD [Primary Care Provider] - 1-2 days Time of Disposition: 16:41
--- NOTE | 2019-03-29 16:10 | XR ---
EXAMINATION TYPE: XR chest 2V DATE OF EXAM: 03/29/2019 COMPARISON: Prior chest x-ray 04/26/2018 HISTORY: Cough x1 week TECHNIQUE: Frontal and lateral views of the chest are obtained. FINDINGS: There is no focal air space opacity, pleural effusion, or pneumothorax seen. The cardiac silhouette size is within normal limits. The osseous structures are intact. IMPRESSION: No acute cardiopulmonary process.
[2019-03-29 16:21] VITALS: PULSE 108
== END 2019-03-29 16:44 | disposition home or self-care (01) ==
LOC: EC 15:20
DX: O99.89 Other specified diseases and conditions complicating pregnancy, childbirth and the puerperium (principal); R05 Cough; R07.0 Pain in throat; O99.213 Obesity complicating pregnancy, third trimester; E66.9 Obesity, unspecified; Z87.09 Personal history of other diseases of the respiratory system; Z86.14 Personal history of Methicillin resistant Staphylococcus aureus infection; Z87.891 Personal history of nicotine dependence; Z3A.30 30 weeks gestation of pregnancy; Z88.0 Allergy status to penicillin; Z91.048 Other nonmedicinal substance allergy status; Z88.1 Allergy status to other antibiotic agents; Z88.5 Allergy status to narcotic agent
CPT/HCPCS: 71046; 87081; 87430; 87502; 94640; 99285

== ENCOUNTER 2019-04-29 13:30 | Outpatient (CLI) | payer OTHER ==
[2019-04-29 14:31] VITALS: BP 118/75; PULSE 106; RESP 18; TEMP 96.3
--- NOTE | 2019-05-16 11:43 | P.MSEPDOC ---
Presenting Problems - Arrival Data Date of Arrival on Unit: 04/29/19 Time of Arrival on Unit: 13:30 Mode of Transport: Ambulatory - Complaint OB-Reason for Admission/Chief Complaint: Rule Out PROM Comment: C/O possible ROM "last night or this morning." Medical History - Information : 3 Para: 1 Term: 0 : 1 Abortions: Spontaneous or Elective: 1 Number of Living Children: 1 - Gestational Age Gestational Age by ANNETTE (wks/days): 35 Weeks and 1 Days Review of Systems - Review of Systems Constitutional: No problems Breast: No problems ENT: No problems Cardiovascular: No problems Respiratory: No problems Gastrointestinal: No problems Genitourinary: No problems Musculoskeletal: No problems Neurological: No problems Skin: No problems Vital Signs - Temperature Temperature: 96.3 F Temperature Source: Temporal Artery Scan - Pulse Right Pulse Oximetery Pulse Rate: 106 Pulse Assessment Method: Pulse Oximetry - Respirations Respiratory Rate: 18 Oxygen Delivery Method: Room Air O2 Sat by Pulse Oximetry: 99 - Blood Pressure Right Arm Blood Pressure: 118/75 Blood Pressure Mean: 89 Blood Pressure Source: Automatic Cuff Medical Screen Scoring (Pre) - Cervical Exam Dilation: 1-3 cm = 1 Effacement: Exam Deferred Membranes: Intact - Uterine Contractions Frequency: > 5 minutes apart = 1 Duration: N/A Intensity: N/A - Maternal Vital Signs Maternal Temperature: N/A Maternal Blood Pressure: N/A Signs of Preeclampsia: N/A Maternal Respirations: N/A - Maternal Trauma Maternal Trauma: N/A - Assessment - Baby A Baseline FHR: 135 Heart Rate - NICHD Category: Category I (Normal) = 0 Position: N/A Station: N/A - Total Score - Baby A Total Score - Baby A: 2 - Total Score - Baby B Total Score - Baby B: 2 - Total Score - Baby C Total Score - Baby C: 2 - Level of Risk - Baby A Level of Risk - Baby A: Low (0-5) - Level of Risk - Baby B Level of Risk - Baby B: Low (0-5) - Level of Risk - Baby C Level of Risk - Baby C: Low (0-5) Physician Notification (Pre) - Physician Notified Physician Notified Date: 04/29/19 Physician Notified Time: 14:10 New Order Received: Yes (Reactive NST and then discharge home with follow up instructions.) - Notification Comment Comment: Reactive NST obtained. Discharge instructions reviewed. Pt verbalizes understanding. Denies additional questions or concerns. Disposition - Disposition OB Disposition: Triage, Discharge to home Discharge Date: 04/29/19 Discharge Time: 14:44 I agree with the RN Medical Screening Exam: Yes Risk & Benefit of care provided described in d/c instruction: Yes Diagnosis: FALSE LABOR BEFORE 37 COMPLETED WEEKS OF GEST, THIRD TRI
== END 2019-04-29 14:44 | disposition home or self-care (01) ==
LOC: FBPOP 13:30
PROVIDERS: ATTEND Obstetrics & Gynecology Obstetrics
DX: O47.03 False labor before 37 completed weeks of gestation, third trimester (principal); Z3A.35 35 weeks gestation of pregnancy
CPT/HCPCS: 59025; 84112; G0463; 99213

== ENCOUNTER 2019-05-07 16:26 | Emergency (ER) | payer OTHER ==
[2019-05-07 16:36] VITALS: BP 120/73; PULSE 111; TEMP 98.3
[2019-05-07 17:02] VITALS: RESP 16
--- NOTE | 2019-05-07 17:48 | XR ---
EXAMINATION TYPE: XR chest 2V DATE OF EXAM: 05/07/2019 COMPARISON: 03/29/2019 HISTORY: Cough TECHNIQUE: FINDINGS: Heart and mediastinum are normal. Lungs are clear. Diaphragm is normal. Bony thorax appears normal. IMPRESSION: Normal chest. No change.
--- NOTE | 2019-05-07 18:15 | ED ---
General Adult HPI - General Chief complaint: Shortness of Breath Stated complaint: fever/body aches/cough Time Seen by Provider: 05/07/19 16:47 Source: patient Mode of arrival: ambulatory Limitations: no limitations - History of Present Illness Initial comments: Patient is a 33-year-old female, currently 36 weeks , presenting to emergency Department with complaints of a mild cough, shortness of breath with exertion, for the past 2 weeks. Patient states she was seen at urgent care last week and was tested negative for influenza. They told her this is most likely viral in nature. She states her symptoms have not improved. She does have an appointment with her WAREHOUSE ENGINEER, Dr. Frey, tomorrow. She denies any abdominal pain, vaginal bleeding, nausea, vomiting. She has no other complaints at this time. Upon arrival to the ER, her vital signs are stable. - Related Data Home Medications Medication Instructions Recorded Confirmed Ferrous Sulfate [Iron] 325 mg PO DAILY 04/29/19 04/29/19 Pnv 11/Iron Fum/Folic Acid/Om3 1 cap PO DAILY 04/29/19 04/29/19 [Virt-Lei Dha Softgel] Sennosides-Docusate Sodium 1 tab PO DAILY 04/29/19 04/29/19 [Senokot-S] Previous Rx's Medication Instructions Recorded Azithromycin [Zithromax Z-pack] 0 mg PO DIRECTED #1 pack 05/07/19 Allergies Allergy/AdvReac Type Severity Reaction Status Date / Time Penicillins Allergy Severe Anaphylaxis Verified 04/29/19 13:42 adhesive tape Allergy Rash/Hives Verified 04/29/19 13:42 clindamycin Allergy Nausea Verified 04/29/19 13:42 hydromorphone HCl AdvReac Intermediate Decreased Verified 04/29/19 13:42 [From Dilaudid] Blood Pressure Review of Systems ROS Statement: Those systems with pertinent positive or pertinent negative responses have been documented in the HPI. ROS Other: All systems not noted in ROS Statement are negative. Past Medical History Past Medical History: Asthma, GERD/Reflux, Hyperlipidemia, Osteoarthritis (OA) Additional Past Medical History / Comment(s): Obesity. PCOS, IBS, chronic back pain"disc herniation", "cluster headaches",fatty liver, esophogitis. Obstetric history is significant for 9 week spontaneous miscarriage. History of Any Multi-Drug Resistant Organisms: MRSA Date of last positivie culture/infection: 2007 MDRO Source:: right breast Past Surgical History: Back Surgery Additional Past Surgical History / Comment(s): Laminectomy Past Anesthesia/Blood Transfusion Reactions: Previous Problems w/ Anesthesia Additional Past Anesthesia/Blood Transfusion Reaction / Comment(s): difficulty waking up , clausterphobia Past Psychological History: Anxiety, Depression Smoking Status: Never smoker - Past Family History Mother Family Medical History: Cancer Father Family Medical History: Eye Disorder Additional Family Medical History / Comment(s): glaucoma, macular degeneration, low sodium General Exam - General Exam Comments Initial Comments: GENERAL: Well-appearing, well-nourished and in no acute distress. HEAD: Atraumatic, normocephalic. EYES: Pupils equal round and reactive to light, extraocular movements intact, sclera anicteric, conjunctiva are normal. ENT: TMs normal, nares patent, oropharynx clear without exudates. Moist mucous membranes. NECK: Normal range of motion, supple without lymphadenopathy or JVD. LUNGS: Breath sounds clear to auscultation bilaterally and equal. No wheezes rales or rhonchi. HEART: Regular rate and rhythm without murmurs, rubs or gallops. ABDOMEN: Soft, nontender, normoactive bowel sounds. No guarding, no rebound. No masses appreciated. : Deferred EXTREMITIES: Normal range of motion, no pitting or edema. No clubbing or cyanosis. NEUROLOGICAL: Normal speech, normal gait. PSYCH: Normal mood, normal affect. SKIN: Warm, Dry, normal turgor, no rashes or lesions noted. Limitations: no limitations Course Vital Signs 05/07/19 05/07/19 16:35 16:59 Temperature 98.3 F Pulse Rate 111 H Respiratory 20 16 Rate Blood Pressure 120/73 O2 Sat by Pulse 98 Oximetry Medical Decision Making - Medical Decision Making Patient is a 33-year-old female presenting with upper respiratory type symptoms for 1-2 weeks. She is currently 36 weeks . No OB complaints such as abdominal pain or vaginal bleeding. Her vital signs are stable. Influenza is negative. Patient's chest x-ray shows no acute findings. I discussed with patient this is most likely viral in nature. Given the length of her symptoms, patient was given azithromycin for upper respiratory infection. She is in agreement with this plan of care. She will follow-up with her WAREHOUSE ENGINEER tomorrow. She'll follow-up with her PCP if symptoms persist. Return parameters were discussed with the patient she verbalized understanding. - Lab Data Lab Results 05/07/19 Range/Units 16:51 Influenza Type A RNA Not Detected (Not Detectd) Influenza Type B (PCR) Not Detected (Not Detectd) Disposition Clinical Impression: Upper respiratory infection, Disposition: HOME SELF-CARE Condition: Stable Instructions (If sedation given, give patient instructions): Upper Respiratory Infection (ED) Additional Instructions: Please return to the Emergency Department if symptoms worsen or any other concerns. Take antibiotic as prescribed. Use inhaler, steam from the shower, humidifier to help with dryness. Follow up with PCP as well as WAREHOUSE ENGINEER. Prescriptions: Azithromycin [Zithromax Z-pack] 0 mg PO DIRECTED #1 pack Is patient prescribed a controlled substance at d/c from ED?: No Referrals: Alda Mendez MD [Primary Care Provider] - 1-2 days
== END 2019-05-07 18:23 | disposition home or self-care (01) ==
LOC: EC 16:26
DX: O99.513 Diseases of the respiratory system complicating pregnancy, third trimester (principal); J06.9 Acute upper respiratory infection, unspecified; O99.213 Obesity complicating pregnancy, third trimester; Z3A.36 36 weeks gestation of pregnancy; Z79.899 Other long term (current) drug therapy; Z88.0 Allergy status to penicillin; Z88.1 Allergy status to other antibiotic agents; Z88.5 Allergy status to narcotic agent; Z91.048 Other nonmedicinal substance allergy status
CPT/HCPCS: 71046; 87502; 99285